=== PATIENT | female | born 1970 | race Caucasian/White ===

== ENCOUNTER 2017-04-17 00:33 | Emergency (ER) | payer SELFPAY ==
[~2017-04-17] VITALS: Ht 162.6 cm; Wt 65.8 kg
[~2017-04-17 00:33] MED LIST: AC325T PO; ACYC200C PO; CEPH500C PO; CYCL10TA9 PO; CYCL5TAB11 PO; DAPS25TA2 PO; DULO60CA6 PO; ESTR1PAT28 TOP; FAMO-119 PO; MMT17NA; NAPR-243 PO; NAPR500T3 PO; NITR100C3 PO; PHEN200T16 PO; PHEN200T27 PO; PRD20T PO; RNT150T; SULF-222 PO; SULF1TAB35 PO; SULF1TAB38 PO; TPR25T; TRM50T PO; [UNRECOGNIZED DRUG - OTHER] PO
[2017-04-17] MEDS ORDERED: MOME15CR17 TP (01:01)
--- NOTE | 2017-04-17 01:01 | ED Integumentary General ---
General Chief Complaint: Bite-Animal/Human/Insect Stated Complaint: BITE ON RT LEG Nursing Triage Note: C/O POSSIBLE SPIDER BITE TO RIGHT GROIN SUNDAY. Source: patient History of Present Illness Time seen by provider: 00:50 Initial Comments PT STATES SHE WAS OUTSIDE WITH HER DOG ON SUNDAY NIGHT, AND FELT SOMETHING BITE/STING HER RIGHT GROIN AREA. DID NOT SEE WHAT BIT/STUNG HER NOTICED A RED BUMP IN AREA AT BEDTIME AREA HAS CONTINUED TO BURN, AND IS HAVING INCREASED REDNESS AROUND THE AREA NO DRAINAGE NO STREAKS NO ITCHING PCP-[facility] Allergies and Home Medications Allergies Coded Allergies: diphenhydramine HCl (Unverified Allergy, Unknown, 11/21/16) Home Medications Mometasone Furoate 15 Gm Cream..g., 0 TP TID, #1 Prescribed by: KIARA CORTEZ on 04/17/17 0101 Constitutional: no symptoms reported EENTM: no symptoms reported Respiratory: no symptoms reported Cardiovascular: no symptoms reported Gastrointestinal: no symptoms reported Genitourinary: no symptoms reported Musculoskeletal: no symptoms reported Skin: see HPI Psychiatric/Neurological: No Symptoms Reported Endocrine: No Symptoms Reported Hematologic/Lymphatic: No Symptoms Reported Past Sezmidq-Kiitrm-Rgksei Hx Patient Social History Alcohol Use: Denies Use Recreational Drug Use: No Smoking Status: Never a Smoker Recent Foreign Travel: No Contact w/Someone Who Travel: No Recent Infectious Disease Expo: No Recent Hopitalizations: No Immunizations Up To Date Tetanus Booster (TDap): Unknown Seasonal Allergies Seasonal Allergies: No Surgeries HX Surgeries: Yes (LAPAROSCOPY; HYST / BSO) Surgeries: Section, Hysterectomy, Oophorectomy Respiratory Hx Respiratory Disorders: Yes Respiratory Disorders: Asthma Cardiovascular Hx Cardiac Disorders: No Neurological Hx Neurological Disorders: No Reproductive System : No Hx Reproductive Disorders: Yes Sexually Transmitted Disease: No Female Reproductive Disorders: Endometriosis 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 Genitourinary Hx Genitourinary Disorders: No Gastrointestinal Hx Gastrointestinal Disorders: Yes (CYSTS ON PANCREAS) Musculoskeletal Hx Musculoskeletal Disorders: Yes Musculoskeletal Disorders: Fibromyalgia Endocrine Hx Endocrine Disorders: Yes Endocrine Disorders: Diabetes, Non-Insulin dep HEENT HX ENT Disorders: No Cancer Hx Cancer: No Psychosocial Hx Psychiatric Problems: No Integumentary HX Skin/Integumentary Disorder: No Blood Transfusions Hx Blood Disorders: No Family Medical History Significant Family History: No Pertinent Family Hx Physical Exam Vital Signs Vital Sign - Last 12Hours 04/17/17 00:52 Temp 97.6 Pulse 75 Resp 16 B/P (MAP) 144/97 Pulse Ox 97 O2 Delivery Room Air Capillary Refill : Less Than 3 Seconds General Appearance: WD/WN, no apparent distress Cardiovascular: regular rate, rhythm Respiratory: normal breath sounds Gastrointestinal: non tender, soft Extremities: other (RIGHT GROIN WITH PINPOINT AREA OF ERYTHEMA WITH MILD SURROUNDING ERYTHEMA OF 1 X 3 CM. NO INDURATION OR WARMTH OR FLUCTUANCE. NO DRAINAGE. NO STREAKS. 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6 97.6 Pulse 75 75 Resp 16 16 B/P (MAP) 144/97 Pulse Ox 97 97 O2 Delivery Room Air Blood Pressure Mean: 113 Departure Impression Impression: Primary Impression: INSECT BITE RIGHT GROIN Additional Impression: Syoshdjaqr-vxpvdofbe-vzfgogq (DPT) vaccination administered at current visit Disposition: 01 HOME, SELF-CARE Condition: Stable Departure-Patient Inst. Referrals: [facility] (PCP/Family) Primary Care Physician Patient Instructions: Diphtheria and Tetanus Toxoids, and Acellular Pertussis Vaccine, Insect Bites and Stings (DC) Add. Discharge Instructions: TYLENOL AND MOTRIN NEEDED FOR PAIN FOLLOW UP WITH YOUR DR IN 2-3 DAYS IF NO BETTER, OR SOONER IF WORSE All discharge instructions reviewed with patient and/or family. Voiced understanding. Scripts Mometasone Furoate (Elocon) 15 Gm Cream..g. 0 TP TID, #1 TUBE Prov: KIARA CORTEZ DO 04/17/17 Images Extremities-Lower 1 - Mild KIARA CORTEZ DO Apr 17, 2017 01:01
[2017-04-17 01:15] VITALS: BP 144/97
[2017-04-17] MEDS ORDERED: TETANUS,DIPTH,PERTUSS P/F (BOOSTRIX) 0.5 ML VIAL IM ONE (01:15)
== END 2017-04-17 01:13 | disposition home or self-care (01) ==
LOC: EDUNIT# 00:33 → ER 00:36
DX: S30.861A Insect bite (nonvenomous) of abdominal wall, initial encounter (principal); J45.909 Unspecified asthma, uncomplicated; E11.9 Type 2 diabetes mellitus without complications; Z90.710 Acquired absence of both cervix and uterus; Z87.19 Personal history of other diseases of the digestive system; Z23 Encounter for immunization; Z87.59 Personal history of other complications of pregnancy, childbirth and the puerperium; W57.XXXA Bitten or stung by nonvenomous insect and other nonvenomous arthropods, initial encounter
CPT/HCPCS: 90471; 90715; 99283

== ENCOUNTER 2018-08-04 10:23 | Emergency (ER) | payer SELFPAY ==
[~2018-08-04] VITALS: Ht 162.6 cm; Wt 52.2 kg
[~2018-08-04 10:23] MED LIST changes: +MOME15CR17 TP; +NAPR-915 PO; -NAPR500T3 PO
--- OUTSIDE RECORDS SUMMARY | 2018-08-04 10:29 | XMS REPORT ---
Author Author JAG OLIVAREZ Organization [facility] Address [address] [place] [address] Care Team Providers Care Light Equipment Operator Name Role Phone JUANIS JAG Unavailable PROBLEMS Type Condition ICD9-CM Code [id number] Code Onset Dates Condition Status SNOMED Code Problem Tinnitus of both ears H93.13 Active 8835176346411 Problem Decreased hearing of both ears H91.93 Active 944785139 Problem Headache R51 Active 51069069 Problem Neck pain M54.2 Active 13518044 ALLERGIES No Information ENCOUNTERS Encounter Location Date Diagnosis [address] [address] Aug, Non-healing skin lesion L98.9 and Impacted cerumen of right ear H61.21 [place] [id number] [place] [address]- [address] Jun, Elevated lipase R74.[address] [address] Jun, Unintentional weight loss R63.4 [place] [id number] [place] [address] 86[address]- [address] Jun, Unintentional weight loss R63.4 ; Fatigue, unspecified type R53.83 and Nausea and vomiting in adult R11.2 [place] [id number] [place] [address] 83209- [address] Dec, Irritant contact dermatitis, unspecified trigger L24.9 [place] [address] [id number] [place] [address]- [address] Nov, [address] [address] Nov, Decreased hearing of both ears H91.93 ; Tinnitus of both ears H93.13 and Cerumen debris on tympanic membrane of left ear H61.22 [facility] [id number] [place] [address]37- 0538 Nov, Neck pain M54.2 ; Headache R51 and Impacted cerumen of left ear H61.22 [facility] [id number] [place] [address]- 7[address] Dec, [facility] [id number] [place] [address] 24594- 9377 Dec, [facility] [id number] [place] [address] 42426- 0761 Nov, [facility] [id number] [place] [address] 53024- 5948 Nov, [facility] [id number] [place] [address] 01930- 9412 Nov, [facility] [id number] [place] [address] 05805- 4473 Nov, [facility] [id number] [place] [address] 95937- 1254 Oct, [facility] [id number] [place] [address] 09587- 8998 Oct, [facility] [id number] [place] [address] 37508- 4225 Oct, [facility] [id number] [place] [address] 673781- 9579 Oct, [facility] [id number] [place] [address] 197274- 4850 Sep, [facility] [id number] [place] [address] 47533- 2577 Sep, [facility] [id number] [place] [address] 80239- 8466 Apr, [facility] [address] [facility] [id number] [place] [address] Apr, [facility] [address] [facility] [id number], [place] [address] Jul, [facility] [address] [facility] [id number], [place] [address] Jul, [facility] [address] [facility] [id number], [place] [address] Nov, IMMUNIZATIONS No Known Immunizations SOCIAL HISTORY Never Assessed REASON FOR VISIT Lab (walk-in) PLAN OF CARE VITAL SIGNS MEDICATIONS No Known Medications RESULTS Name Result Date Reference Range HEMOCCULT (IN HOUSE)-Additional 2017-06-27 RESULTS Negative Control + Lot # [id number] Exp Date 08/2017 HEMOCCULT (IN HOUSE) 2017-06-27 RESULTS Negative Control + Lot # [id number] Exp date 08/2017 PROCEDURES Procedure Date Ordered Result Body Site TEST FOR BLOOD, FECES Jun 27, 2017 INSTRUCTIONS MEDICATIONS ADMINISTERED No Known Medications MEDICAL (GENERAL) HISTORY Type Description Date Medical History fibromyalgia Medical History depression Medical History type II diabetes- dr cedeño in [place] dx'd- she does not ck bs because it causes too much pain. Medical History headache syndrome Medical History asthma Surgical History hysterectomy, total 2007 Surgical History section 1997 Surgical History Dental surgery- wisdom teeth removal 2008 & 2010 Hospitalization History Surgery(s)/Childbirth(s) only
--- OUTSIDE RECORDS SUMMARY | 2018-08-04 10:29 | XMS REPORT ---
Author Author WARREN SINGH Organization [facility] Address [address] [place] [address] Care Team Providers Care Innersole Maker Name Role Phone WARREN SINGH Unavailable PROBLEMS Type Condition ICD9-CM Code ZZK69-DO Code Onset Dates Condition Status SNOMED Code Problem Tinnitus of both ears H93.13 Active 8240155043399 Problem Decreased hearing of both ears H91.93 Active 671583350 Problem Headache R51 Active 49584577 Problem Neck pain M54.2 Active 95880439 ALLERGIES No Information ENCOUNTERS Encounter Location Date Diagnosis [place] [address] [place] [id number] [place] [address] Aug, Non-healing skin lesion L98.9 and Impacted cerumen of right ear H61.21 [place] [address] [place] [id number] [place] [address]- 20[address] Jun, Elevated lipase R74.8 [place] [address] [place] [id number] [place] [address]- 5437 Jun, Unintentional weight loss R63.4 [place] [address] [place] [id number] [place] [address] 79376- [address] Jun, Unintentional weight loss R63.4 ; Fatigue, unspecified type R53.83 and Nausea and vomiting in adult R11.2 [place] [address] [place] [id number] [place] [address] 26380- 2644 Dec, Irritant contact dermatitis, unspecified trigger L24.9 [place] [address] [place] [id number] [place] [address] 54597- 4520 Nov, [place] [address] [place] [id number] [place] [address] 09198- 8314 Nov, Decreased hearing of both ears H91.93 ; Tinnitus of both ears H93.13 and Cerumen debris on tympanic membrane of left ear H61.22 [facility] [address] [place] [id number] [place] [address] 42475- 0078 Nov, Neck pain M54.2 ; Headache R51 and Impacted cerumen of left ear H61.22 [facility] [address] [id number] [place] [address] 31293- 5800 Dec, [facility] [address] [id number] [place] [address] 38021- 4065 Dec, [facility] [address] [place] [id number] [place] [address] 493963- 0642 Nov, [facility] [address] [place] [id number] [place] [address] 42220- 4099 Nov, [facility] [address] [id number] [place] [address] 05450- 7950 Nov, [facility] [id number] [place] [address] 60249- 4983 Nov, [facility] [id number] [place] [address] 34028- 1211 Oct, [facility] [address] [id number] [place] [address] 75604- 2049 Oct, [facility] [address] [id number] [place] [address] [id number]- 9142 Oct, [facility] [address] [id number] [place] [address] 106430- 7116 Oct, [facility] [id number] [place] [address] 782454- 7837 Sep, [facility] [id number] [place] [address] 642730- 0846 Sep, [facility] [id number] [place] [address] 754684- 8354 Apr, [facility] [address] [facility] [id number] [place] [address]- [address] Apr, [facility] [address] [facility] [facility] [id number] [address] Jul, [facility] [address] [facility] [facility] [id number] [place] [address] Jul, [facility] [address] [facility] [address] [facility] [id number] [place] [address] Nov, IMMUNIZATIONS No Known Immunizations SOCIAL HISTORY Never Assessed REASON FOR VISIT US order PLAN OF CARE VITAL SIGNS MEDICATIONS No Known Medications RESULTS No Results PROCEDURES No Known procedures INSTRUCTIONS MEDICATIONS ADMINISTERED No Known Medications MEDICAL [...]
--- OUTSIDE RECORDS SUMMARY | 2018-08-04 10:29 | XMS REPORT ---
Author Author MARLENI HILL [employer] Address Unknown Phone Unavailable Care Team Providers Care Decorating Machine Tender Name Role Phone MARLENI HILL CP Unavailable Allergies, Adverse Reactions, Alerts Substance Reaction Event Type Benadryl hives Drug Allergy Problems Problem Type Condition Code Onset Dates Condition Status Problem Chest pain, unspecified 786.50 Active Problem Routine general medical examination at health care facility V70.0 Active Problem Unspecified otalgia 388.70 Active Problem Tinnitus of both ears H93.13 Active Problem Cerumen debris on tympanic membrane of left ear H61.22 Active Problem Decreased hearing of both ears H91.93 Active Problem Impacted cerumen of left ear H61.22 Active Problem Other abnormal glucose 790.29 Active Problem Neck pain M54.2 Active Problem Headache R51 Active Assessment Irritant contact dermatitis, unspecified trigger L24.9 Active Problem Other malaise and fatigue 780.79 Active Problem Other dyspnea and respiratory abnormalities 786.09 Active Medications Medication Code System Code Instructions Start Date End Date Status Dosage Triamcinolone Acetonide [facility] [address]-73 0.5 % Externally Twice a day December 27, 2015 1 application to affected area Naproxen [facility] [address]-77 500 MG Orally every 12 hrs prn November 11, 2015 1 tablet as needed Procedures Procedure Coding System Code Date Office Visit, Est Pt., Level 3 CPT-4 99860 December 27, 2015 Vital Signs Date/Time: December 27, 2015 Temperature 98.7 F Weight 136.4 lbs Height 64 in BMI 23.41 Index Blood Pressure Diastolic 70 mmHg Blood Pressure Systolic 118 mmHg Cardiac Monitoring Heart Rate 70 bpm Results No Known Results Summary Purpose [employer] Submission
--- OUTSIDE RECORDS SUMMARY | 2018-08-04 10:29 | XMS REPORT ---
Author Author JAG OLIVAREZ [facility] Address [address] [place] [address] Care Team Providers Care Joy Operator Name Role Phone JAG OLIVAREZ Unavailable PROBLEMS Type Condition ICD9-CM Code KLG40-KI Code Onset Dates Condition Status SNOMED Code Problem Tinnitus of both ears H93.13 Active 7253660101858 Problem Decreased hearing of both ears H91.93 Active 856947440 Problem Headache R51 Active 16281411 Problem Neck pain M54.2 Active 69634057 ALLERGIES Substance Reaction Event Type Date Status Benadryl hives Drug Allergy Aug, Active ENCOUNTERS Encounter Location Date Diagnosis [address] [address] Aug, Non-healing skin lesion L98.9 and Impacted cerumen of right ear H61.[address] [address] Jun, Elevated lipase R74.8 [place] [id number] [place] [address] 8[address]- [address] Jun, Unintentional weight loss R63.[address] [address]- [address] Jun, Unintentional weight loss R63.4 ; Fatigue, unspecified type R53.83 and Nausea and vomiting in adult R11.[address] [address]- [address] Dec, Irritant contact dermatitis, unspecified trigger L24.9 [place] [id number] [place] [address] 23516- 3667 Nov, [address] [place] [address]- [address] Nov, Decreased hearing of both ears H91.93 ; Tinnitus of both ears H93.13 and Cerumen debris on tympanic membrane of left ear H61.22 [facility] [id number] [place] [address] 33088- 2265 Nov, Neck pain M54.2 ; Headache R51 and Impacted cerumen of left ear H61.22 [facility] [id number] [place] [address] 68235- 9729 Dec, [facility] [id number] [place] [address] 53939- 8133 Dec, [facility] [id number] [place] [address] 02240- 9739 Nov, [facility] [id number] [place] [address] 34973- 7895 Nov, [facility] [id number] [place] [address] 43450- 7546 Nov, [facility] [id number] [place] [address] 04434- 4650 Nov, [facility] [id number] [place] [address] 45628- 6173 Oct, [facility] [address] [address]- 164[address] Oct, [facility] [id number] [place] [address] [id number]- 8989 Oct, [facility] [id number] [place] [address] 363845- 9450 Oct, [facility] [id number] [place] [address] 110550- 3301 Sep, [facility] [address] Sep, [facility] [address] [facility] [id number] [place] [address]- [address] Apr, [facility] [address] [facility] [id number] [place] [address]- 1087 Apr, [facility] [address] [facility] [id number] [place] [address]- 4416 Jul, [facility] [address] [facility] [id number] [place] [address]- 9409 Jul, [facility] [address] [facility] [id number] [place] [address]- [address] Nov, IMMUNIZATIONS No Known Immunizations SOCIAL HISTORY Never Assessed REASON FOR VISIT Spots on face on right side of forehead, appeared quite a while ago, states it will fall off and regrow, one near her eyebrow just appeared a few weeks ago- [place] PLAN OF CARE Activity Details 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 Reason:lesion VITAL SIGNS Height 64 in 2017-09-05 Weight 113.0 lbs 2017-09-05 Temperature 98.7 degrees Fahrenheit 2017-09-05 Heart Rate 78 bpm 2017-09-05 Respiratory Rate 18 2017-09-05 BMI 19.39 kg/m2 2017-09-05 Blood pressure systolic 104 mmHg 2017-09-05 Blood pressure diastolic 66 mmHg 2017-09-05 MEDICATIONS Medication Instructions Dosage Frequency Start Date End Date Duration Status Triamcinolone Acetonide 0.5 % Externally Twice a day 1 application to affected area 12h Dec, 07 days Not-Taking Naproxen 500 MG Orally every 12 hrs prn 1 tablet as needed Nov, Not-Taking ibuprofen Active RESULTS No Results PROCEDURES No Known procedures [...]
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
[2018-08-04] MEDS ORDERED: NS IV 1000 ML 1,000 ML IV ONE (10:43)
[2018-08-04] MEDS ORDERED: ONDANSETRON 4 MG/2 ML (SDV) Z0FRAN IVP ONE (10:45)
--- NOTE | 2018-08-04 10:58 | ED GI ---
General Chief Complaint: Abdominal/GI Problems Stated Complaint: THROWING UP ALL NIGHT Source of Information: Patient Exam Limitations: No Limitations History of Present Illness Date Seen by Provider: Aug 04, 2018 Time Seen by Provider: 10:56 Initial Comments To ER per private vehicle with reports of abdominal pain nausea and vomiting. The abdominal pain is periumbilical and began yesterday evening. A few hours after the cramping middle abdominal pain began she started to vomit and vomited off and on throughout most of the night. She denies any diarrhea. Currently the cramping abdominal pain is improved but not gone, she does not have any vomiting at this time. No fevers or chills. She suspects this may be "food poisoning" because this began shortly after eating a prepared meal from one of the local [employer]. Timing/Duration: 12-24 Hours Severity/Quality: Moderate, Cramping Location: Periumbilical Associated Symptoms: No Fever/Chills; Nausea/Vomiting Allergies and Home Medications Allergies Coded Allergies: Penicillins (Verified Allergy, Unknown, 08/04/18) diphenhydramine HCl (Unverified Allergy, Unknown, 11/21/16) Home Medications Hyoscyamine Sulfate 0.125 Mg Tab.subl, 0.125 MG SL Q4H PRN for CRAMPS Prescribed by: TED WOMACK on 08/04/18 1320 Ondansetron HCl 4 Mg Tab, 4 MG PO Q6H PRN for NAUSEA/VOMITING Prescribed by: TED WOMACK on 08/04/18 1321 Patient Home Medication List Home Medication List Reviewed: Yes Review of Systems Review of Systems Constitutional: see HPI EENTM: No Symptoms Reported Respiratory: No Symptoms Reported Cardiovascular: No Symptoms Reported Gastrointestinal: See HPI, Abdominal Pain, Nausea, Vomiting Genitourinary: No Symptoms Reported Musculoskeletal: no symptoms reported Skin: no symptoms reported Psychiatric/Neurological: No Symptoms Reported Endocrine: No Symptoms Reported Past Aqzsgbw-Hbbamf-Lzxuhu Hx Patient Social History Recent Foreign Travel: No Contact w/Someone Who Travel: No Recent Hopitalizations: No Immunizations Up To Date Tetanus Booster (TDap): Unknown Seasonal Allergies Seasonal Allergies: No Past Medical History Surgeries: Yes (LAPAROSCOPY) Section, Hysterectomy, Oophorectomy Respiratory: Yes Asthma Cardiac: No Neurological: No Reproductive Disorders: Yes Female Reproductive Disorders: Endometriosis [employer] History: Hysterectomy Sexually Transmitted Disease: No Genitourinary: No Gastrointestinal: Yes (CYSTS ON PANCREAS) Musculoskeletal: Yes Fibromyalgia Endocrine: Yes Diabetes, Non-Insulin dep HEENT: No Cancer: No Psychosocial: No Integumentary: No Blood Disorders: No Family Medical History No Pertinent Family Hx Physical Exam Vital Signs Vital Signs - First Documented 08/04/18 11:02 Temp 99.5 Pulse 75 Resp 18 B/P (MAP) 103/81 (88) Pulse Ox 99 Capillary Refill : Height/Weight/BMI Height: 5'4" Weight: 145lbs. oz. [id number]; 23.17 BMI Method:Stated General Appearance: WD/WN, no apparent distress HEENT: PERRL/EOMI, normal ENT inspection Neck: non-tender, full range of motion Respiratory: no respiratory distress, no accessory muscle use Gastrointestinal: normal bowel sounds, soft, tenderness Extremities: normal range of motion, non-tender Neurologic/Psychiatric: alert, normal mood/affect, oriented x 3 Skin: normal color, warm/dry Progress/Results/Core Measures Results/Orders Lab Results Laboratory Tests Test 08/04/18 10:59 08/04/18 11:07 08/04/18 12:10 Range/Units White Blood Count 7.0 4.3-11.0 10^3/uL Red Blood Count 4.84 4.35-5.85 10^6/uL Hemoglobin 14.4 11.5-16.0 G/DL Hematocrit 43 35-52 % Mean Corpuscular Volume 88 80-99 FL Mean Corpuscular Hemoglobin 30 25-34 PG Mean Corpuscular Hemoglobin Concent 34 32-36 G/DL Red Cell Distribution Width 13.2 10.0-14.5 % Platelet Count 192 130-400 10^3/uL Mean Platelet Volume 10.6 H 7.4-10.4 FL Neutrophils (%) (Auto) 93 H 42-75 % Lymphocytes (%) (Auto) 5 L 12-44 % Monocytes (%) (Auto) 2 0-12 % Eosinophils (%) (Auto) 0 0-10 % Basophils (%) (Auto) 0 0-10 % Neutrophils # (Auto) 6.5 1.8-7.8 X 10^3 Lymphocytes # (Auto) 0.3 L 1.0-4.0 X 10^3 Monocytes # (Auto) 0.2 0.0-1.0 X 10^3 Eosinophils # (Auto) 0.0 0.0-0.3 10^3/uL Basophils # (Auto) 0.0 0.0-0.1 10^3/uL Sodium Level 140 135-145 MMOL/L Potassium Level 3.8 3.6-5.0 MMOL/L Chloride Level 108 H 98-107 MMOL/L Carbon Dioxide Level 19 L 21-32 MMOL/L Anion Gap 13 5-14 MMOL/L Blood Urea Nitrogen 18 7-18 MG/DL Creatinine 0.75 0.60-1.30 MG/DL Estimat Glomerular Filtration Rate > 60 BUN/Creatinine Ratio 24 Glucose Level 104 70-105 MG/DL Calcium Level 9.1 8.5-10.1 MG/DL Corrected Calcium 9.0 8.5-10.1 MG/DL Magnesium Level 2.1 1.8-2.4 MG/DL Total Bilirubin 0.7 0.1-1.0 MG/DL Aspartate Amino Transf (AST/SGOT) 19 5-34 U/L Alanine Aminotransferase (ALT/SGPT) 21 0-55 U/L Alkaline Phosphatase 56 40-136 U/L Total Protein 7.0 6.4-8.2 GM/DL Albumin 4.1 3.2-4.5 GM/DL Lipase 29 8-78 U/L Glucometer 92 70-110 MG/DL Urine Color YELLOW Urine Clarity SLIGHTLY CLOUDY Urine pH 5 5-9 Urine Specific [place] 1.020 1.016-1.022 Urine Protein 1+ H NEGATIVE Urine Glucose (UA) NEGATIVE NEGATIVE Urine Ketones 2+ H NEGATIVE Urine Nitrite NEGATIVE NEGATIVE Urine Bilirubin NEGATIVE NEGATIVE Urine Urobilinogen NORMAL NORMAL MG/DL Urine Leukocyte Esterase NEGATIVE NEGATIVE Urine RBC (Auto) 1+ H NEGATIVE Urine RBC RARE /HPF Urine WBC RARE /HPF Urine Crystals NONE /LPF Urine Bacteria MODERATE H /HPF Urine Casts NONE /LPF Urine Mucus LARGE H /LPF Urine Culture Indicated NO My Orders Orders - TED WOMACK APRN Lactated Ringers (Lr 1000 Ml Iv Solution (08/04/18 12:15) Medications Given in ED Current Medications Medications Dose Ordered Sig/Segun Route Start Time Stop Time Status Last Admin Dose Admin Ondansetron HCl 8 mg ONCE ONCE IVP 08/04/18 10:45 08/04/18 10:46 DC 08/04/18 11:19 8 MG Sodium Chloride 1,000 ml @ 0 mls/hr Q0M ONCE IV 08/04/18 10:43 08/04/18 10:45 DC 08/04/18 11:19 0 MLS/HR Vital Signs/I&O 08/04/18 11:02 Temp 99.5 Pulse 75 Resp 18 B/P (MAP) 103/81 (88) Pulse Ox 99 Departure Impression Primary Impression: Volume depletion Additional Impression: Nausea & vomiting Qualified Codes: R11.2 - Nausea with vomiting, unspecified Disposition: HOME, SELF-CARE Condition: Improved Departure-Patient Inst. Decision time for Depature: 13:19 Referrals: [facility] (PCP/Family) Primary Care Physician Patient Instructions: Nausea and Vomiting, Adult Add. Discharge Instructions: 1. Drink plenty of fluids, Pedialyte is a great choice. Small frequent sips being careful not to drink too much all at once. Use the nausea medication as needed and the medication for abdominal cramping as needed. All discharge instructions reviewed with patient and/or family. Voiced understanding. Scripts Ondansetron HCl (Zofran) 4 Mg Tab 4 MG PO Q6H PRN for NAUSEA/VOMITING, #14 TAB Prov: TED WOMACK APRN 08/04/18 Hyoscyamine Sulfate (Levsin-Sl) 0.125 Mg Tab.subl 0.125 MG SL Q4H PRN for CRAMPS, #10 TAB Prov: TED WOMACK APRN 08/04/18 Work/School Note: Work Release Form Date Seen in the Emergency Department: Aug 04, 2018 Return to Work: Aug 06, 2018 TED WOMACK APRN Aug 04, 2018 10:58
[2018-08-04 11:57] LABS: BASOPHILS % (AUTO) 0 % (0-10); EOSINOPHILS % (AUTO) 0 % (0-10); HEMATOCRIT 43 % (35-52); HEMOGLOBIN 14.4 G/DL (11.5-16.0); LYMPHOCYTES # (AUTO) 0.3 X 10^3 (1.0-4.0); LYMPHOCYTES % (AUTO) 5 % (12-44); MEAN CORPUSCULAR HEMOGLOBIN 30 PG (25-34); MEAN CORPUSCULAR HGB CONC 34 G/DL (32-36); MEAN CORPUSCULAR VOLUME 88 FL (80-99); MEAN PLATELET VOLUME 10.6 FL (7.4-10.4); MONOCYTES # (AUTO) 0.2 X 10^3 (0.0-1.0); MONOCYTES % (AUTO) 2 % (0-12); NEUTROPHILS # (AUTO) 6.5 X 10^3 (1.8-7.8); NEUTROPHILS % (AUTO) 93 % (42-75); PLATELET COUNT 192 10^3/uL (130-400); RED BLOOD COUNT 4.84 10^6/uL (4.35-5.85); RED CELL DISTRIBUTION WIDTH 13.2 % (10.0-14.5)
[2018-08-04 12:00] LABS: ALANINE AMINOTRANSFERASE 21 U/L (0-55); ALBUMIN 4.1 GM/DL (3.2-4.5); ALKALINE PHOSPHATASE 56 U/L (40-136); BILIRUBIN,TOTAL 0.7 MG/DL (0.1-1.0); BUN/CREATININE RATIO 24; CALCIUM 9.1 MG/DL (8.5-10.1); CARBON DIOXIDE 19 MMOL/L (21-32); CHLORIDE 108 MMOL/L (98-107); CREATININE SERUM 0.75 MG/DL (0.60-1.30); GFR ESTIMATED > 60; GLUCOSE 104 MG/DL (70-105); LIPASE 29 U/L (8-78); MAGNESIUM 2.1 MG/DL (1.8-2.4); POTASSIUM 3.8 MMOL/L (3.6-5.0); SODIUM 140 MMOL/L (135-145)
[2018-08-04] MEDS ORDERED: LACTATED RINGERS 1,000 ML IV SCH (12:15)
[2018-08-04 12:52] LABS: BILIRUBIN,URINE NEGATIVE (NEGATIVE); CLARITY,URINE SLIGHTLY CLOUDY; COLOR,URINE YELLOW; GLUCOSE, URINE (UA) NEGATIVE (NEGATIVE); KETONES,URINE 2+ (NEGATIVE); LEUKOCYTE ESTERASE ,URINE NEGATIVE (NEGATIVE); NITRITE,URINE NEGATIVE (NEGATIVE); PH,URINE 5 (5-9); PROTEIN,URINE 1+ (NEGATIVE); UROBILINOGEN,URINE NORMAL (NORMAL)
[2018-08-04 13:07] LABS: BACTERIA,URINE MODERATE /HPF; RBC,URINE RARE /HPF; WBC,URINE RARE /HPF
[2018-08-04] MEDS ORDERED: HYOS0.1283 SL (13:20)
[2018-08-04] MEDS ORDERED: ONDN4T PO (13:21)
[2018-08-04 13:44] VITALS: BP 100/51
[2018-08-04 14:11] LABS: BAND NEUTROPHILS 8 %; LYMPHOCYTES % (MANUAL) 7 %; MONOCYTES % (MANUAL) 2 %; NEUTROPHILS % (MANUAL) 83 %
[2018-08-04 14:12] LABS: TEAR DROP CELLS SLIGHT
== END 2018-08-04 13:43 | disposition home or self-care (01) ==
LOC: EDUNIT# 10:23 → ER 10:24
DX: E86.9 Volume depletion, unspecified (principal); R11.2 Nausea with vomiting, unspecified; J45.909 Unspecified asthma, uncomplicated; E11.9 Type 2 diabetes mellitus without complications; Z87.19 Personal history of other diseases of the digestive system; Z87.448 Personal history of other diseases of urinary system; Z88.0 Allergy status to penicillin; Z88.8 Allergy status to other drugs, medicaments and biological substances; Z90.710 Acquired absence of both cervix and uterus; Z98.890 Other specified postprocedural states
CPT/HCPCS: 36415; 51701; 80053; 81000; 82962; 83690; 83735; 85007; 85027; 96361; 96374

== ENCOUNTER 2019-04-30 12:52 | Emergency (ER) | payer SELFPAY ==
[~2019-04-30] VITALS: Ht 162.6 cm; Wt 52.2 kg
[~2019-04-30 12:52] MED LIST changes: +HYOS0.1283 SL; +ONDN4T PO
--- NOTE | 2019-04-30 13:20 | NUR ---
PT APPEARS TO BE ANXIOUS BUT DENIES ANXIETY AT THIS TIME.
[2019-04-30 13:33] LABS: BASOPHILS % (AUTO) 1 % (0-10); EOSINOPHILS # (AUTO) 0.1 10^3/uL (0.0-0.3); EOSINOPHILS % (AUTO) 2 % (0-10); HEMATOCRIT 42 % (35-52); LYMPHOCYTES # (AUTO) 1.7 X 10^3 (1.0-4.0); LYMPHOCYTES % (AUTO) 29 % (12-44); MEAN CORPUSCULAR HEMOGLOBIN 29 PG (25-34); MEAN CORPUSCULAR HGB CONC 33 G/DL (32-36); MEAN CORPUSCULAR VOLUME 88 FL (80-99); MEAN PLATELET VOLUME 10.3 FL (7.4-10.4); MONOCYTES # (AUTO) 0.4 X 10^3 (0.0-1.0); MONOCYTES % (AUTO) 7 % (0-12); NEUTROPHILS # (AUTO) 3.6 X 10^3 (1.8-7.8); NEUTROPHILS % (AUTO) 61 % (42-75); PLATELET COUNT 177 10^3/uL (130-400); RED CELL DISTRIBUTION WIDTH 13.3 % (10.0-14.5); WHITE BLOOD COUNT 5.9 10^3/uL (4.3-11.0)
[2019-04-30 13:53] LABS: FIBRIN DEGRADATION PRODUCTS 0.2 UG/ML (0.00-0.49); PROTHROMBIN TIME PATIENT 13.5 SEC (12.2-14.7)
[2019-04-30 13:54] LABS: ALANINE AMINOTRANSFERASE 12 U/L (0-55); ALBUMIN 4.2 GM/DL (3.2-4.5); ALKALINE PHOSPHATASE 58 U/L (40-136); BILIRUBIN,TOTAL 0.4 MG/DL (0.1-1.0); BUN/CREATININE RATIO 19; CALCIUM 8.9 MG/DL (8.5-10.1); CARBON DIOXIDE 30 MMOL/L (21-32); CHLORIDE 104 MMOL/L (98-107); CREATININE SERUM 0.77 MG/DL (0.60-1.30); GFR ESTIMATED > 60; GLUCOSE 92 MG/DL (70-105); POTASSIUM 3.8 MMOL/L (3.6-5.0); SODIUM 139 MMOL/L (135-145); TOTAL PROTEIN 7.1 GM/DL (6.4-8.2)
--- NOTE | 2019-04-30 14:15 | Diagnostic Imaging Report ---
INDICATION: Body numbness. TIME OF EXAMINATION: 2:04 PM. COMPARISON: 12/19/2015. FINDINGS: The heart size is normal. The lungs are clear. No infiltrate is seen. No effusion or pneumothorax is detected. IMPRESSION: No acute cardiopulmonary process is detected. Dictated by: Dictated on workstation # [id number]
[2019-04-30 14:16] LABS: BILIRUBIN,URINE NEGATIVE (NEGATIVE); CLARITY,URINE CLEAR; COLOR,URINE YELLOW; GLUCOSE, URINE (UA) NEGATIVE (NEGATIVE); KETONES,URINE NEGATIVE (NEGATIVE); LEUKOCYTE ESTERASE ,URINE NEGATIVE (NEGATIVE); NITRITE,URINE NEGATIVE (NEGATIVE); PH,URINE 6 (5-9); PROTEIN,URINE NEGATIVE (NEGATIVE); UROBILINOGEN,URINE NORMAL (NORMAL)
[2019-04-30 14:26] LABS: BACTERIA,URINE NEGATIVE /HPF
[2019-04-30 14:27] LABS: AMPHETAMINE SCREEN, URINE NEGATIVE (NEGATIVE); BARBITURATE SCREEN URINE NEGATIVE (NEGATIVE); BENZODIAZEPINES SCREEN URINE NEGATIVE (NEGATIVE); CANNABINOID SCREEN, URINE NEGATIVE (NEGATIVE); COCAINE SCREEN URINE NEGATIVE (NEGATIVE); METHADONE STAT NEGATIVE (NEGATIVE); METHAMPHETAMINE SCREEN URINE S NEGATIVE (NEGATIVE); OPIATE SCREEN URINE NEGATIVE (NEGATIVE); OXYCODONE STAT NEGATIVE (NEGATIVE); PROPOXYPHENE STAT NEGATIVE (NEGATIVE); TRICYCLIC ANTIDEPRESSANTS SCRE NEGATIVE (NEGATIVE)
--- NOTE | 2019-04-30 14:28 | Diagnostic Imaging Report ---
PROCEDURE: CT head w/o r/o stroke. TECHNIQUE: Multiple contiguous axial images were obtained through the brain without the use of intravenous contrast. Auto Exposure Controls were utilized during the CT exam to meet ALARA standards for radiation dose reduction. INDICATION: Left-sided facial pain, dizziness, and blurred vision. COMPARISON: No prior examinations are available for comparison. FINDINGS: There is no hemorrhage, hydrocephalus, edema, mass, mass effect, or evidence for elevated intracranial pressures. The basal cisterns are patent. There is no sulcal effacement. No abnormal extra-axial collection. The orbits, sinuses, and calvarium are nonacute. IMPRESSION: No hemorrhage, edema, or acute appearing abnormalities. Dictated by: Dictated on workstation # [id number]
--- NOTE | 2019-04-30 14:32 | ED General ---
General Chief Complaint: Neuro-Stroke Like Symptoms Stated Complaint: LEFT SIDE FACIAL PAIN Nursing Triage Note: was at work when her R arm went numb which then moved to L side of body, states the L side of her face now feels like it is on fire Nursing Sepsis Screen: No Definite Risk Source of Information: Patient History of Present Illness Date Seen by Provider: Apr 30, 2019 Time Seen by Provider: 13:15 Initial Comments PT ARRIVES VIA POV FROM HOME PT STATES "I JUST DON'T FEEL GOOD" STATES SHE HAS BEEN DIZZY--SI BETTER NOW. STATES AT 0900, WHILE AT WORK AT [employer], SHE STARTED HAVING PAIN IN LEFT LEG AND RIGHT ARM, THEN HER WHOLE LEFT SIDE STARTED HURTING, AND THEN SHE GOT DIZZY STATES THE LEFT SIDE OF HER FACE WAS HURTING SO BAD--NOT NOW. ALSO STATES HER LEFT SHOULDER WAS HURTING--NOT NOW STATES THEN HER CHEST STARTED HURTING A LITTLE BIT, AFTER SHE ARRIVED IN THE WAITING ROOM--LASTED A FEW MINUTES AND HAS NOT RETURNED. STATES SHE HAD "CHEST PAINS LAST WEEK FOR 3 OR 4 DAYS" --DID NOT SEEK CARE FOR THAT STATES SHE HAS HAD SOME NAUSEA BECAUSE OF THE PAIN NO PROBLEMS WALKING OR USING HER ARMS OR LEGS NO PROBLEMS TALKING OR SWALLOWING HAS SLIGHT HEADACHE NO VISION CHANGES SLIGHT SHORTNESS OF BREATH WHEN HER CHEST HURT-STATES IT FELT TIGHT NO ACTUAL NUMBNESS OR TINGLING--STATES "IT WAS NUMB BECAUSE IT HURT SO BAD" STATES ALOT OF FAMILY STRESS THE LAST WEEK STATES SHE HAS HAD "DIZZY SPELLS" FOR MANY YEARS, AND HAS BEEN DX WITH V[facility]IGO STATES "SOMETIMES THEY GET SO BAD, I FEEL LIKE I'M GOING TO PASS OUT" PT STATES WORK UP'S IN THE PAST HAVE ALL BEEN NORMAL DOES NOT TAKE ANYTHING FOR DIZZINESS ALSO HAS LONG HISTORY OF ANXIETY, BUT DOES NOT TAKE ANY MEDICATION FOR IT OR SEE A THERAPIST/MENTAL HEALTH PROVIDER, ETC. PCP: MILLIE, NO RECENT VISITS. Allergies and Home Medications Allergies Coded Allergies: Penicillins (Verified Allergy, Unknown, 08/04/18) diphenhydramine HCl (Unverified Allergy, Unknown, 11/21/16) morphine (Verified Allergy, Unknown, 04/30/19) Uncoded Allergies: steroids (Allergy, Mild, 04/30/19) Home Medications Hyoscyamine Sulfate 0.125 Mg Tab.subl, 0.125 MG SL Q4H PRN for CRAMPS Prescribed by: TED WOMACK on 08/04/18 1320 Meloxicam 15 Mg Tablet, 15 MG PO DAILY Prescribed by: KIARA CORTEZ on 04/30/19 1451 Ondansetron HCl 4 Mg Tab, 4 MG PO Q6H PRN for NAUSEA/VOMITING Prescribed by: TED WOMACK on 08/04/18 1321 Patient Home Medication List Home Medication List Reviewed: Yes Review of Systems Review of Systems Constitutional: see HPI; No chills, No diaphoresis; dizziness; No fever, No malaise, No weakness EENTM: no symptoms reported; No blurred vision, No double vision Respiratory: see HPI Cardiovascular: see HPI Gastrointestinal: no symptoms reported; No abdominal pain, No loss of appetite, No nausea Genitourinary: no symptoms reported Musculoskeletal: see HPI Skin: no symptoms reported Psychiatric/Neurological: See HPI, Anxiety, Headache Hematologic/Lymphatic: No Symptoms Reported Immunological/Allergic: no symptoms reported Past Ruztsrf-Yetrmo-Cfodpn Hx Patient Social History Alcohol Use: Occasionally Uses Alcohol Beverage of Choice: Wine Recreational Drug Use: No Smoking Status: Never a Smoker 2nd Hand Smoke Exposure: No Recent Foreign Travel: No Contact w/Someone Who Travel: No Recent Infectious Disease Expo: No Recent Hopitalizations: No Physical Abuse: No Sexual Abuse: No Mistreated: No Fear: No Immunizations Up To Date Tetanus Booster (TDap): Unknown Seasonal Allergies Seasonal Allergies: No Past Medical History Surgeries: Yes (LAPAROSCOPY; HYST/BSO) Section, Hysterectomy, Oophorectomy Respiratory: Yes Asthma Cardiac: No Neurological: Yes Headaches /Migraines, Vertigo Reproductive Disorders: Yes Female Reproductive Disorders: Endometriosis 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 oz. 52.592311hn; 23.17 BMI Method:Stated General Appearance: No Apparent Distress, WD/WN, Anxious HEENT: PERRL/EOMI, TMs Normal, Normal ENT Inspection, Pharynx Normal, Moist Mucous Membranes Neck: Full Range of Motion, Normal Inspection, Non Tender, Supple; No Carotid Bruit, No JVD Respiratory: Chest Non Tender, Normal Breath Sounds, No Accessory Muscle Use, No Respiratory Distress Cardiovascular: Regular Rate, Rhythm, No Edema, No Gallop, No JVD, No Murmur, Normal Peripheral Pulses Gastrointestinal: Normal Bowel Sounds, No Organomegaly, No Pulsatile Mass, Non Tender, Soft Back: Normal Inspection Extremity: Normal Capillary Refill, Normal Inspection, Normal Range of Motion, Non Tender, No Calf Tenderness, No Pedal Edema Neurologic/Psychiatric: Alert, Oriented x3, No Motor/Sensory Deficits, implementation coordinator II- XII Norm as Tested; No Abnormal Cerebellar Tests; Other (ANXIOUS; NIH = 0) Skin: Normal Color, Warm/Dry Progress/Results/Core Measures Suspected Sepsis Recent Fever Within 48 Hours: No Infection Criteria Present: None New/Unexplained Altered Menta: No Sepsis Screen: No Definite Risk SIRS Temperature: Pulse: 73 Respiratory Rate: 18 Laboratory Tests 04/30/19 13:24: White Blood Count 5.9 Blood Pressure 127 /69 Mean: 88 Laboratory Tests 04/30/19 13:24: Creatinine 0.77, INR Comment 1.0, Platelet Count 177, Total Bilirubin 0.4 Results/Orders Lab Results Laboratory Tests Test 04/30/19 13:24 04/30/19 14:10 Range/Units White Blood Count 5.9 4.3-11.0 10^3/uL Red Blood Count 4.82 4.35-5.85 10^6/uL Hemoglobin 14.0 11.5-16.0 G/DL Hematocrit 42 35-52 % Mean Corpuscular Volume 88 80-99 FL Mean Corpuscular Hemoglobin 29 25-34 PG Mean Corpuscular Hemoglobin Concent 33 32-36 G/DL Red Cell Distribution Width 13.3 10.0-14.5 % Platelet Count 177 130-400 10^3/uL Mean Platelet Volume 10.3 7.4-10.4 FL Neutrophils (%) (Auto) 61 42-75 % Lymphocytes (%) (Auto) 29 12-44 % Monocytes (%) (Auto) 7 0-12 % Eosinophils (%) (Auto) 2 0-10 % Basophils (%) (Auto) 1 0-10 % Neutrophils # (Auto) 3.6 1.8-7.8 X 10^3 Lymphocytes # (Auto) 1.7 1.0-4.0 X 10^3 Monocytes # (Auto) 0.4 0.0-1.0 X 10^3 Eosinophils # (Auto) 0.1 0.0-0.3 10^3/uL Basophils # (Auto) 0.0 0.0-0.1 10^3/uL Prothrombin Time 13.5 12.2-14.7 SEC INR Comment 1.0 0.8-1.4 Activated Partial Thromboplast Time 38 H 24-35 SEC D-Dimer 0.20 0.00-0.49 UG/ML Sodium Level 139 135-145 MMOL/L Potassium Level 3.8 3.6-5.0 MMOL/L Chloride Level 104 98-107 MMOL/L Carbon Dioxide Level 30 21-32 MMOL/L Anion Gap 5 5-14 MMOL/L Blood Urea Nitrogen 15 7-18 MG/DL Creatinine 0.77 0.60-1.30 MG/DL Estimat Glomerular Filtration Rate > 60 BUN/Creatinine Ratio 19 Glucose Level 92 70-105 MG/DL Calcium Level 8.9 8.5-10.1 MG/DL Corrected Calcium 8.7 8.5-10.1 MG/DL Total Bilirubin 0.4 0.1-1.0 MG/DL Aspartate Amino Transf (AST/SGOT) 14 5-34 U/L Alanine Aminotransferase (ALT/SGPT) 12 0-55 U/L Alkaline Phosphatase 58 40-136 U/L Troponin I < 0.028 <0.028 NG/ML Total Protein 7.1 6.4-8.2 GM/DL Albumin 4.2 3.2-4.5 GM/DL Serum Alcohol < 10 <10 MG/DL Urine Color YELLOW Urine Clarity CLEAR Urine pH 6 5-9 Urine Specific [place] 1.020 1.016-1.022 Urine Protein NEGATIVE NEGATIVE Urine Glucose (UA) NEGATIVE NEGATIVE Urine Ketones NEGATIVE NEGATIVE Urine Nitrite NEGATIVE NEGATIVE Urine Bilirubin NEGATIVE NEGATIVE Urine Urobilinogen NORMAL NORMAL MG/DL Urine Leukocyte Esterase NEGATIVE NEGATIVE Urine RBC (Auto) NEGATIVE NEGATIVE Urine RBC NONE /HPF Urine WBC NONE /HPF Urine Squamous Epithelial Cells NONE /HPF Urine Crystals NONE /LPF Urine Bacteria NEGATIVE /HPF Urine Casts NONE /LPF Urine Mucus NEGATIVE /LPF Urine Culture Indicated NO Urine Opiates Screen NEGATIVE NEGATIVE Urine Oxycodone Screen NEGATIVE NEGATIVE Urine Methadone Screen NEGATIVE NEGATIVE Urine Propoxyphene Screen NEGATIVE NEGATIVE Urine Barbiturates Screen NEGATIVE NEGATIVE Ur Tricyclic Antidepressants Screen NEGATIVE NEGATIVE Urine Phencyclidine Screen NEGATIVE NEGATIVE Urine Amphetamines Screen NEGATIVE NEGATIVE Urine Methamphetamines Screen NEGATIVE NEGATIVE Urine Benzodiazepines Screen NEGATIVE NEGATIVE Urine Cocaine Screen NEGATIVE NEGATIVE Urine Cannabinoids Screen NEGATIVE NEGATIVE My Orders Orders - DIEGOKIARA Kailey DO Cbc With Automated Diff (04/30/19 13:14) Protime With Inr (04/30/19 13:14) Partial Thromboplastin Time (04/30/19 13:14) Comprehensive Metabolic Panel (04/30/19 13:14) Fibrin Degradation Products (04/30/19 13:14) Troponin I (04/30/19 13:14) Ua Culture If Indicated (04/30/19 13:14) Chest 1 View, Ap/Pa Only (04/30/19 13:14) Ekg Tracing (04/30/19 13:14) Accucheck Stat ONCE (04/30/19 13:14) Ed Iv/Invasive Line Start (04/30/19 13:14) Ed Iv/Invasive Line Start (04/30/19 13:14) Vital Signs Stroke Patient Q15M (04/30/19 13:14) Ct Head Wo-R/O Stroke (04/30/19 13:14) O2 (04/30/19 13:14) Intake & Output 06,14,22 (04/30/19 13:14) Monitor-Rhythm Ecg Trace Only (04/30/19 13:14) Dysphagia Screening Tool (04/30/19 13:14) Alcohol (04/30/19 13:16) Drug Screen Stat (Urine) (04/30/19 13:16) Vital Signs/I&O Capillary Refill : Less Than 3 Seconds Blood Pressure Mean: 88 Progress Note : Progress Note UNEVENTFUL ER STAY SYMPTOMS RESOLVED ON ARRIVAL, AND REMAINED SYMPTOM-FREE FOR REMAINDER OF ER STAY ECG Initial ECG Impression Date: Apr 30, 2019 Initial ECG Impression Time: 13:18 Initial ECG Rate: 59 Initial ECG Rhythm: Normal Sinus Initial ECG Comparisson: No Previous ECG Available Diagnostic Imaging Comments CXR--NO ACUTE PROCESS CT HEAD--NO ACUTE PROCESS PER RADIOLOGIST REPORTS AT 1431 Reviewed: Reviewed by Me Departure Impression Primary Impression: MUSCULOSKELETAL PAIN Additional Impressions: Anxiety CHRONIC INTERMITTENT DIZZINESS Disposition: 01 HOME, SELF-CARE Condition: Improved Departure-Patient Inst. Referrals: [facility] (PCP/Family) Primary Care Physician Patient Instructions: Muscle and Bone Pain (DC), Anxiety, Adult (DC) Add. Discharge Instructions: HOME, REST FOLLOW UP WITH YOUR DR THIS WEEK FOR FURTHER CARE All discharge instructions reviewed with patient and/or family. Voiced understanding. Scripts Meloxicam (Mobic) 15 Mg Tablet 15 MG PO DAILY, #10 TAB Prov: KIARA CORTEZ DO 04/30/19 KIARA CORTEZ DO Apr 30, 2019 14:32
--- NOTE | 2019-04-30 14:42 | NUR ---
DR CORTEZ IN TALKING TO PT AT THIS TIME.
[2019-04-30] MEDS ORDERED: MELO15TA14 PO (14:51)
[2019-04-30 14:57] VITALS: BP 120/75
== END 2019-04-30 14:57 | disposition home or self-care (01) ==
LOC: EDUNIT# 12:52 → ER 12:53
DX: M79.10 Myalgia, unspecified site (principal); J45.909 Unspecified asthma, uncomplicated; G43.909 Migraine, unspecified, not intractable, without status migrainosus; M79.7 Fibromyalgia; E11.9 Type 2 diabetes mellitus without complications; Z88.0 Allergy status to penicillin; Z88.8 Allergy status to other drugs, medicaments and biological substances; Z90.710 Acquired absence of both cervix and uterus
CPT/HCPCS: 36415; 70450; 71045; 80053; 80306; 80320; 81000; 84484; 85025; 85379; 85610; 85730; 93005; 93041

== ENCOUNTER 2021-10-18 12:28 | Emergency (ER) | payer OTHER ==
[~2021-10-18] VITALS: Ht 162 cm; Wt 54.0 kg
[~2021-10-18 12:28] MED LIST changes: +CYCL10TA25 PO; +MELO15TA14 PO; -MOME15CR17 TP; +MOME15CR8 TP; -SULF1TAB35 PO
[2021-10-18 13:14] LABS: BILIRUBIN,URINE NEGATIVE (NEGATIVE); CLARITY,URINE CLEAR; COLOR,URINE YELLOW; GLUCOSE, URINE (UA) NEGATIVE (NEGATIVE); KETONES,URINE NEGATIVE (NEGATIVE); LEUKOCYTE ESTERASE ,URINE NEGATIVE (NEGATIVE); NITRITE,URINE NEGATIVE (NEGATIVE); PROTEIN,URINE NEGATIVE (NEGATIVE)
[2021-10-18 13:15] LABS: BASOPHILS % (AUTO) 1 % (0-10); EOSINOPHILS # (AUTO) 0.1 10^3/uL (0.0-0.3); EOSINOPHILS % (AUTO) 1 % (0-10); HEMATOCRIT 41 % (35-52); HEMOGLOBIN 13.5 g/dL (11.5-16.0); LYMPHOCYTES # (AUTO) 1.8 10^3/uL (1.0-4.0); LYMPHOCYTES % (AUTO) 29 % (12-44); MEAN CORPUSCULAR HEMOGLOBIN 30 pg (25-34); MEAN CORPUSCULAR HGB CONC 33 g/dL (32-36); MEAN CORPUSCULAR VOLUME 90 fL (80-99); MEAN PLATELET VOLUME 10.1 fL (9.0-12.2); MONOCYTES # (AUTO) 0.5 10^3/uL (0.0-1.0); MONOCYTES % (AUTO) 7 % (0-12); NEUTROPHILS # (AUTO) 3.9 10^3/uL (1.8-7.8); NEUTROPHILS % (AUTO) 62 % (42-75); PLATELET COUNT 196 10^3/uL (130-400); WHITE BLOOD COUNT 6.3 10^3/uL (4.3-11.0)
[2021-10-18] MEDS ORDERED: KETOROLAC 30 MG/ML VIAL IVP ONE (13:15)
[2021-10-18] MEDS ORDERED: ONDANSETRON 4 MG/2 ML (SDV) Z0FRAN IVP ONE (13:15)
--- NOTE | 2021-10-18 13:17 | ED Abdominal Pain ---
General Chief Complaint: Abdominal/GI Problems Stated Complaint: STOMACH PAIN/VOMITING Nursing Triage Note: PT CO OF ABD PAIN STARTED ONE WEEK AGO, PT RATES PAIN 10/10, STATES HAS N/V DENIES DIARRHEA. PT WAS SEEN AT [facility] YESTERDAY Source of Information: Patient Exam Limitations: No Limitations History of Present Illness Date Seen by Provider: Oct 18, 2021 Time Seen by Provider: 13:15 Initial Comments To ER with suprapubic abdominal pain that started 1 week ago. Its 10 out of 10. Has a history of fibromyalgia. Occasional loose stools, no dysuria no fevers. She states that she always has chills. She does have nausea no vomiting. Timing/Duration: 1-2 Days Severity/Quality: Moderate Location: Suprapubic Radiation: No Radiation Activities at Onset: None Associated Symptoms: Nausea/Vomiting Allergies and Home Medications Allergies Coded Allergies: Penicillins (Verified Allergy, Unknown, 08/04/18) diphenhydramine HCl (Unverified Allergy, Unknown, 11/21/16) morphine (Verified Allergy, Unknown, 04/30/19) Uncoded Allergies: steroids (Allergy, Mild, 04/30/19) Patient Home Medication List Home Medication List Reviewed: Yes Hyoscyamine Sulfate (Levsin-Sl) 0.125 Mg Tab.subl, 0.125 MG SL Q4H PRN for CRAMPS Prescribed by: TED WOMACK on 08/04/18 1320 Meloxicam (Mobic) 15 Mg Tablet, 15 MG PO DAILY Prescribed by: KIARA CORTEZ on 04/30/19 1451 Ondansetron HCl (Zofran) 4 Mg Tab, 4 MG PO Q6H PRN for NAUSEA/VOMITING Prescribed by: TED WOMACK on 08/04/18 1321 Review of Systems Review of Systems Constitutional: see HPI EENTM: No Symptoms Reported Respiratory: No Symptoms Reported Cardiovascular: No Symptoms Reported Gastrointestinal: See HPI, Abdominal Pain Genitourinary: No Symptoms Reported Musculoskeletal: no symptoms reported Skin: no symptoms reported Psychiatric/Neurological: No Symptoms Reported Endocrine: No Symptoms Reported Hematologic/Lymphatic: No Symptoms Reported Past Jyjbzho-Brgovq-Hbfzpg Hx Immunizations Up To Date Tetanus Booster (TDap): Unknown Seasonal Allergies Seasonal Allergies: No Past Medical History Surgeries: Yes (LAPAROSCOPY; HYST/BSO) Section, Hysterectomy, Oophorectomy Respiratory: Yes Asthma Cardiac: No Neurological: Yes Headaches /Migraines, Vertigo Reproductive Disorders: Yes Female Reproductive Disorders: Endometriosis 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 oz. 52.364632iy; 20.00 BMI Method:Stated General Appearance: WD/WN, no apparent distress HEENT: PERRL/EOMI, normal ENT inspection Respiratory: no respiratory distress, no accessory muscle use Cardiovascular: regular rate, rhythm, no murmur Gastrointestinal: normal bowel sounds, soft, tenderness Extremities: normal range of motion, non-tender Neurologic/Psychiatric: alert, normal mood/affect, oriented x 3 Skin: normal color, warm/dry Progress/Results/Core Measures Results/Orders Lab Results Laboratory Tests Test 10/18/21 13:02 10/18/21 13:12 Range/Units Urine Color YELLOW Urine Clarity CLEAR Urine pH 7.0 5-9 Urine Specific [place] 1.020 1.016-1.022 Urine Protein NEGATIVE NEGATIVE Urine Glucose (UA) NEGATIVE NEGATIVE Urine Ketones NEGATIVE NEGATIVE Urine Nitrite NEGATIVE NEGATIVE Urine Bilirubin NEGATIVE NEGATIVE Urine Urobilinogen 0.2 < = 1.0 MG/DL Urine Leukocyte Esterase NEGATIVE NEGATIVE Urine RBC (Auto) NEGATIVE NEGATIVE Urine RBC NONE /HPF Urine WBC NONE /HPF Urine Squamous Epithelial Cells 0-2 /HPF Urine Crystals PRESENT H /LPF Urine Amorphous Sediment RARE SAMI URATES H /LPF Urine Bacteria TRACE /HPF Urine Casts NONE /LPF Urine Mucus SMALL H /LPF Urine Culture Indicated NO White Blood Count 6.3 4.3-11.0 10^3/uL Red Blood Count 4.51 3.80-5.11 10^6/uL Hemoglobin 13.5 11.5-16.0 g/dL Hematocrit 41 35-52 % Mean Corpuscular Volume 90 80-99 fL Mean Corpuscular Hemoglobin 30 25-34 pg Mean Corpuscular Hemoglobin Concent 33 32-36 g/dL Red Cell Distribution Width 12.7 10.0-14.5 % Platelet Count 196 130-400 10^3/uL Mean Platelet Volume 10.1 9.0-12.2 fL Immature Granulocyte % (Auto) 1 % Neutrophils (%) (Auto) 62 42-75 % Lymphocytes (%) (Auto) 29 12-44 % Monocytes (%) (Auto) 7 0-12 % Eosinophils (%) (Auto) 1 0-10 % Basophils (%) (Auto) 1 0-10 % Neutrophils # (Auto) 3.9 1.8-7.8 10^3/uL Lymphocytes # (Auto) 1.8 1.0-4.0 10^3/uL Monocytes # (Auto) 0.5 0.0-1.0 10^3/uL Eosinophils # (Auto) 0.1 0.0-0.3 10^3/uL Basophils # (Auto) 0.0 0.0-0.1 10^3/uL Immature Granulocyte # (Auto) 0.0 0.0-0.1 10^3/uL Sodium Level 137 135-145 MMOL/L Potassium Level 3.8 3.6-5.0 MMOL/L Chloride Level 104 98-107 MMOL/L Carbon Dioxide Level 24 21-32 MMOL/L Anion Gap 9 5-14 MMOL/L Blood Urea Nitrogen 14 7-18 MG/DL Creatinine 0.71 0.60-1.30 MG/DL Estimat Glomerular Filtration Rate 102 BUN/Creatinine Ratio 20 Glucose Level 95 70-105 MG/DL Calcium Level 8.8 8.5-10.1 MG/DL Corrected Calcium 8.7 8.5-10.1 MG/DL Total Bilirubin 0.5 0.1-1.0 MG/DL Aspartate Amino Transf (AST/SGOT) 17 5-34 U/L Alanine Aminotransferase (ALT/SGPT) 19 0-55 U/L Alkaline Phosphatase 52 40-136 U/L Total Protein 6.8 6.4-8.2 GM/DL Albumin 4.1 3.2-4.5 GM/DL My Orders Orders - TED WOMACK GAS LINE INSTALLER SUPERVISOR Cbc With Automated Diff (10/18/21 13:07) Comprehensive Metabolic Panel (10/18/21 13:07) Ua Culture If Indicated (10/18/21 13:07) Ed Iv/Invasive Line Start (10/18/21 13:07) Ct Abdomen/Pelvis W (10/18/21 13:07) Ketorolac Injection (Toradol Injection) (10/18/21 13:15) Ondansetron Injection (Zofran Injectio (10/18/21 13:15) Iohexol Injection (Omnipaque 350 Mg/Ml 1 (10/18/21 13:30) Received Contrast (Hold Metformin- Contr (10/18/21 13:30) Sodium Chloride Flush (Catheter Flush Sy (10/18/21 13:30) Ns (Ivpb) (Sodium Chloride 0.9% Ivpb Bag (10/18/21 13:30) Medications Given in ED Current Medications Medications Dose Ordered Sig/Segun Route Start Time Stop Time Status Last Admin Dose Admin Iohexol 100 ml ONCE ONCE IV 10/18/21 13:30 10/18/21 13:31 DC 10/18/21 13:42 74 ML Ketorolac Tromethamine 15 mg ONCE ONCE IVP 10/18/21 13:15 10/18/21 13:16 DC 10/18/21 13:25 15 MG Ondansetron HCl 8 mg ONCE ONCE IVP 10/18/21 13:15 10/18/21 13:16 DC 10/18/21 13:24 8 MG Sodium Chloride 10 ml NEEDED PRN IV 10/18/21 13:30 10/18/21 13:42 10 ML Sodium Chloride 100 ml ONCE ONCE IV 10/18/21 13:30 10/18/21 13:31 DC 10/18/21 13:42 80 ML Vital Signs/I&O 10/18/21 12:49 Temp 36.0 Pulse 73 Resp 18 B/P (MAP) 134/74 (94) Pulse Ox 99 Blood Pressure Mean: 94 Departure Communication (Admissions) NAME: [facility] REC#: [id number] PT STATUS: REG ER : 1970 PHYSICIAN: TED WOMACK APRN ADMIT DATE: 10/18/21/ER Draft Date of Exam:10/18/21 CT ABDOMEN/PELVIS W EXAMINATION: CT abdomen and pelvis with intravenous contrast. TECHNIQUE: Multiple contiguous axial images were obtained through the abdomen and pelvis after the uneventful administration of intravenous contrast. All CT scans use one or more of the following dose optimizing techniques: Automated exposure control, MA and/or KvP adjustment based on patient size and exam type or iterative reconstruction. HISTORY: Suprapubic pain. COMPARISON: None available. FINDINGS: Lung bases: There is a 0.6 cm left lower lobe pulmonary nodule (series 2, image 6). Solid organs: The liver is normal without focal lesion. The gallbladder is normal. There is no biliary ductal dilation. Pancreas is normal. Spleen is normal. Adrenal glands are normal. The kidneys are normal without hydronephrosis. Bowel: The stomach and small bowel are normal without obstruction. Scattered colonic diverticulosis. The appendix is nonvisualized and may be surgically absent. No findings of acute appendicitis. Peritoneum: There is no intraperitoneal free fluid or free air. No suspicious lymphadenopathy. Vasculature: Normal without aneurysm. Musculoskeletal: No suspicious osseous lesion or compression fracture. Pelvis: The uterus is surgically absent. No adnexal mass. The urinary bladder is normal. IMPRESSION: 1. No acute abnormality in the abdomen or pelvis. 2. Colonic diverticulosis without findings of diverticulitis. 3. A 0.6 cm left lower lobe pulmonary nodule. Recommend follow-up CT of the chest in 6-12 months. Dictated on workstation # [id number] Dict: 10/18/21 1350 Trans: 10/18/21 1404 [id number] Interpreted by: NANETTE SHI DO Electronically signed by: Impression Primary Impression: Irritable bowel syndrome Disposition: 01 HOME, SELF-CARE Condition: Stable Departure-Patient Inst. Decision time for Depature: 14:07 Referrals: NO,LOCAL PHYSICIAN (PCP/Family) Primary Care Physician Patient Instructions: Irritable Bowel Syndrome Add. Discharge Instructions: 1. Your CT scan does not show any abnormality in the abdomen.There is a very small 6 mm nodule in the left lower lobe of the lung which is an incidental find ing but warrants a repeat CT scan in 6 to 12 months to ensure stability of size. All discharge instructions reviewed with patient and/or family. Voiced understanding. Scripts Dicyclomine HCl (Dicyclomine HCl) 20 Mg Tablet 20 MG PO TID, #21 TAB Prov: TED WOMACK GAS LINE INSTALLER SUPERVISOR 2/8/22 Work/School Note: Work Release Form Date Seen in the Emergency Department: Oct 18, 2021 Return to Work: Oct 19, 2021 TED WOMACK APRN Oct 18, 2021 13:17
[2021-10-18 13:20] LABS: ALBUMIN 4.1 GM/DL (3.2-4.5); POTASSIUM 3.8 MMOL/L (3.6-5.0)
[2021-10-18 13:21] LABS: CALCIUM 8.8 MG/DL (8.5-10.1)
[2021-10-18 13:22] LABS: TOTAL PROTEIN 6.8 GM/DL (6.4-8.2)
[2021-10-18 13:24] LABS: BILIRUBIN,TOTAL 0.5 MG/DL (0.1-1.0)
[2021-10-18 13:26] LABS: CREATININE SERUM 0.71 MG/DL (0.60-1.30)
[2021-10-18] MEDS ORDERED: CATHETER FLUSH 10 ML SYR IV PRN (13:30)
[2021-10-18] MEDS ORDERED: HOLD METFORMIN - RECEIVED CONTRAST 20 ML VIAL IV SCH (13:30)
[2021-10-18] MEDS ORDERED: NS 100 ML (IVPB) BAG IV ONE (13:30)
[2021-10-18] MEDS ORDERED: IOHEXOL 350 MG/ML 100 ML (OMNIPAQUE 350) VIAL IV ONE (13:30)
[2021-10-18 13:31] LABS: BACTERIA,URINE TRACE /HPF; SQUAMOUS EPITHELIAL CELL,UR 0-2 /HPF
[2021-10-18 13:32] LABS: AMORPHOUS SEDIMENT,UR RARE AMOR URATES /LPF
--- NOTE | 2021-10-18 14:04 | Diagnostic Imaging Report ---
EXAMINATION: CT abdomen and pelvis with intravenous contrast. TECHNIQUE: Multiple contiguous axial images were obtained through the abdomen and pelvis after the uneventful administration of intravenous contrast. All CT scans use one or more of the following dose optimizing techniques: Automated exposure control, MA and/or KvP adjustment based on patient size and exam type or iterative reconstruction. HISTORY: Suprapubic pain. COMPARISON: None available. FINDINGS: Lung bases: There is a 0.6 cm left lower lobe pulmonary nodule (series 2, image 6). Solid organs: The liver is normal without focal lesion. The gallbladder is normal. There is no biliary ductal dilation. Pancreas is normal. Spleen is normal. Adrenal glands are normal. The kidneys are normal without hydronephrosis. Bowel: The stomach and small bowel are normal without obstruction. Scattered colonic diverticulosis. The appendix is nonvisualized and may be surgically absent. No findings of acute appendicitis. Peritoneum: There is no intraperitoneal free fluid or free air. No suspicious lymphadenopathy. Vasculature: Normal without aneurysm. Musculoskeletal: No suspicious osseous lesion or compression fracture. Pelvis: The uterus is surgically absent. No adnexal mass. The urinary bladder is normal. IMPRESSION: 1. No acute abnormality in the abdomen or pelvis. 2. Colonic diverticulosis without findings of diverticulitis. 3. A 0.6 cm left lower lobe pulmonary nodule. Recommend follow-up CT of the chest in 6-12 months. Dictated by: Dictated on workstation # [id number]
[2021-10-18] MEDS ORDERED: DICY20TA PO (14:09)
[2021-10-18 14:23] VITALS: BP 128/70
== END 2021-10-18 14:23 | disposition home or self-care (01) ==
LOC: EDUNIT# 12:28 → ER 12:30
DX: K58.9 Irritable bowel syndrome, unspecified (principal); J45.909 Unspecified asthma, uncomplicated; E11.9 Type 2 diabetes mellitus without complications
CPT/HCPCS: 36415; 74177; 80053; 81000; 85025

== ENCOUNTER 2022-02-07 11:02 | Emergency (ER) | payer OTHER ==
[~2022-02-07] VITALS: Ht 36.3 cm; Wt 54.0 kg
[~2022-02-07 11:02] MED LIST changes: +DICY20TA PO
[2022-02-07 11:59] LABS: BASOPHILS % (AUTO) 1 % (0-10); EOSINOPHILS # (AUTO) 0.1 10^3/uL (0.0-0.3); EOSINOPHILS % (AUTO) 1 % (0-10); HEMATOCRIT 44 % (35-52); HEMOGLOBIN 14.6 g/dL (11.5-16.0); LYMPHOCYTES # (AUTO) 1.4 10^3/uL (1.0-4.0); LYMPHOCYTES % (AUTO) 21 % (12-44); MEAN CORPUSCULAR HEMOGLOBIN 31 pg (25-34); MEAN CORPUSCULAR HGB CONC 34 g/dL (32-36); MEAN CORPUSCULAR VOLUME 91 fL (80-99); MEAN PLATELET VOLUME 10.2 fL (9.0-12.2); MONOCYTES # (AUTO) 0.3 10^3/uL (0.0-1.0); MONOCYTES % (AUTO) 5 % (0-12); NEUTROPHILS % (AUTO) 72 % (42-75); PLATELET COUNT 186 10^3/uL (130-400); WHITE BLOOD COUNT 6.9 10^3/uL (4.3-11.0)
--- NOTE | 2022-02-07 11:59 | Diagnostic Imaging Report ---
Indication: Chest pain Single AP view of the chest is obtained with comparison made study of 04/30/2019 FINDINGS: Heart size and pulmonary vascularity are within normal limits, and the lungs are clear, bilaterally. IMPRESSION: Unremarkable chest. Dictated by: Dictated on workstation # [id number]
[2022-02-07 12:06] LABS: ALBUMIN 4.3 GM/DL (3.2-4.5); POTASSIUM 4.9 MMOL/L (3.6-5.0)
[2022-02-07 12:07] LABS: CALCIUM 9.4 MG/DL (8.5-10.1)
[2022-02-07 12:09] LABS: TOTAL PROTEIN 7.7 GM/DL (6.4-8.2)
[2022-02-07 12:10] LABS: BILIRUBIN,TOTAL 0.4 MG/DL (0.1-1.0)
[2022-02-07 12:12] LABS: CREATININE SERUM 0.76 MG/DL (0.60-1.30)
[2022-02-07 12:15] LABS: MAGNESIUM 2.2 MG/DL (1.6-2.4)
[2022-02-07 12:22] LABS: CREATINE KINASE MB 1.8 NG/ML (<6.6)
--- NOTE | 2022-02-07 13:25 | Diagnostic Imaging Report ---
PROCEDURE: CT cervical spine without contrast. TECHNIQUE: Multiple contiguous axial images were obtained through the cervical spine without the use of intravenous contrast. Sagittal and coronal reformations were then performed. Auto Exposure Controls were utilized during the CT exam to meet ALARA standards for radiation dose reduction. INDICATION: Numbness in arms. COMPARISON: CT cervical spine without contrast of 04/20/2016. FINDINGS: Normal alignment. Vertebral body heights are preserved. No fractures. Mild scattered degenerative endplate changes. No evidence of high-grade spinal canal stenosis on soft tissue windows. Visualized paravertebral soft tissues are unremarkable. Lung apices are clear. IMPRESSION: Mild spondylotic changes in the cervical spine. No acute CT findings. Dictated by: Dictated on workstation # [id number]
[2022-02-07 14:17] LABS: PROTHROMBIN TIME PATIENT 13.2 SEC (12.2-14.7)
--- NOTE | 2022-02-07 14:28 | ED Cardiac General ---
History of Present Illness General Chief Complaint: Chest Pain Stated Complaint: CP,L ARM NUMBNESS Nursing Triage Note: Pt reports chest pain starting at 0700 this morning. Pt reports pain to L arm, bilat legs, and L side of face at same time CP started. Pt states pain has improved some but rating pain 7/10 upon arrival to ED. Pt reports intermittent chest pains x1 month but states pain constant today. 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 States that over the past year she has had bilateral arm pain, her fingers would turn red, white, purple, also states that she has been having bilateral leg pain intermittently. Allergies and Home Medications Allergies Coded Allergies: Penicillins (Verified Allergy, Unknown, 08/04/18) diphenhydramine HCl (Unverified Allergy, Unknown, 11/21/16) morphine (Verified Allergy, Unknown, 04/30/19) Uncoded Allergies: steroids (Allergy, Mild, 04/30/19) Patient Home Medication List Dicyclomine HCl (Dicyclomine HCl) 20 Mg Tablet, 20 MG PO TID Prescribed by: TED WOMACK on 10/18/21 1409 Hyoscyamine Sulfate (Levsin-Sl) 0.125 Mg Tab.subl, 0.125 MG SL Q4H PRN for CRAMPS Prescribed by: TED WOMACK on 08/04/18 1320 Meloxicam (Mobic) 15 Mg Tablet, 15 MG PO DAILY Prescribed by: KIARA CORTEZ on 04/30/19 1451 Ondansetron HCl (Zofran) 4 Mg Tab, 4 MG PO Q6H PRN for NAUSEA/VOMITING Prescribed by: TED WOMACK on 08/04/18 1321 Past Axcbtxg-Gjqafu-Ycnong Hx Patient Social History Tobacco Use?: No Substance use?: No Alcohol Use?: No Immunizations Up To Date Tetanus Booster (TDap): Unknown Seasonal Allergies Seasonal Allergies: No Past Medical History Surgery/Hospitalization HX: ASTHMA Surgeries: Yes (LAPAROSCOPY; HYST/BSO) Section, Hysterectomy, Oophorectomy Respiratory: Yes Asthma Cardiac: No Neurological: Yes Headaches /Migraines, Vertigo Reproductive Disorders: Yes Female Reproductive Disorders: Endometriosis [employer] History: Hysterectomy, Menopausal Sexually Transmitted Disease: No Genitourinary: No Gastrointestinal: Yes (CYSTS ON PANCREAS) Musculoskeletal: Yes Fibromyalgia Endocrine: Yes Diabetes, Non-Insulin dep HEENT: No Cancer: No Psychosocial: Yes Anxiety Integumentary: No Blood Disorders: No Family Medical History No Pertinent Family Hx Physical Exam Vital Signs Vital Signs - First Documented 02/07/22 11:40 Pulse 79 Resp 18 B/P (MAP) 121/86 (98) Pulse Ox 98 O2 Delivery Room Air Capillary Refill : Less Than 3 Seconds Height, Weight, BMI Height: 5'4.00" Weight: 115lbs. oz. 52.403178rz; 409.00 BMI Method:Stated Progress/Results/Core Measures Results/Orders Lab Results Laboratory Tests Test 02/07/22 11:49 02/07/22 13:47 Range/Units White Blood Count 6.9 4.3-11.0 10^3/uL Red Blood Count 4.79 3.80-5.11 10^6/uL Hemoglobin 14.6 11.5-16.0 g/dL Hematocrit 44 35-52 % Mean Corpuscular Volume 91 80-99 fL Mean Corpuscular Hemoglobin 31 25-34 pg Mean Corpuscular Hemoglobin Concent 34 32-36 g/dL Red Cell Distribution Width 12.7 10.0-14.5 % Platelet Count 186 130-400 10^3/uL Mean Platelet Volume 10.2 9.0-12.2 fL Immature Granulocyte % (Auto) 0 % Neutrophils (%) (Auto) 72 42-75 % Lymphocytes (%) (Auto) 21 12-44 % Monocytes (%) (Auto) 5 0-12 % Eosinophils (%) (Auto) 1 0-10 % Basophils (%) (Auto) 1 0-10 % Neutrophils # (Auto) 5.0 1.8-7.8 10^3/uL Lymphocytes # (Auto) 1.4 1.0-4.0 10^3/uL Monocytes # (Auto) 0.3 0.0-1.0 10^3/uL Eosinophils # (Auto) 0.1 0.0-0.3 10^3/uL Basophils # (Auto) 0.0 0.0-0.1 10^3/uL Immature Granulocyte # (Auto) 0.0 0.0-0.1 10^3/uL Sodium Level 141 135-145 MMOL/L Potassium Level 4.9 3.6-5.0 MMOL/L Chloride Level 105 98-107 MMOL/L Carbon Dioxide Level 22 21-32 MMOL/L Anion Gap 14 5-14 MMOL/L Blood Urea Nitrogen 11 7-18 MG/DL Creatinine 0.76 0.60-1.30 MG/DL Estimat Glomerular Filtration Rate 94 BUN/Creatinine Ratio 14 Glucose Level 94 70-105 MG/DL Calcium Level 9.4 8.5-10.1 MG/DL Corrected Calcium 9.2 8.5-10.1 MG/DL Magnesium Level 2.2 1.6-2.4 MG/DL Total Bilirubin 0.4 0.1-1.0 MG/DL Aspartate Amino Transf (AST/SGOT) 26 5-34 U/L Alanine Aminotransferase (ALT/SGPT) 26 0-55 U/L Alkaline Phosphatase 64 40-136 U/L Total Creatine Kinase 68 29-168 U/L Creatine Kinase MB 1.8 <6.6 NG/ML Myoglobin 34.7 10.0-92.0 NG/ML Troponin I < 0.028 <0.028 NG/ML Total Protein 7.7 6.4-8.2 GM/DL Albumin 4.3 3.2-4.5 GM/DL Thyroid Stimulating Hormone (TSH) 0.64 0.35-4.94 UIU/ML Prothrombin Time 13.2 12.2-14.7 SEC INR Comment 1.0 0.8-1.4 Activated Partial Thromboplast Time 35 24-35 SEC D-Dimer < 0.27 0.00-0.49 UG/ML My Orders Orders - BEB[employer] NICHOLS [employer] Cbc With Automated Diff (02/07/22 11:41) Magnesium (02/07/22 11:41) Chest 1 View, Ap/Pa Only (02/07/22 11:41) Comprehensive Metabolic Panel (02/07/22 11:41) Myoglobin Serum (02/07/22 11:41) Protime With Inr (02/07/22 11:41) Partial Thromboplastin Time (02/07/22 11:41) O2 (02/07/22 11:41) Monitor-Rhythm Ecg Trace Only (02/07/22 11:41) Ed Iv/Invasive Line Start (02/07/22 11:41) Creatine Kinase (02/07/22 11:41) Creatine Kinase Mb (02/07/22 11:41) Fibrin Degradation Products (02/07/22 11:41) Troponin I Gi (02/07/22 11:41) Thyroid Stimulating Hormone (02/07/22 12:28) Ct Cervical Spine Wo (02/07/22 12:29) Vital Signs/I&O 02/07/22 11:40 Pulse 79 Resp 18 B/P (MAP) 121/86 (98) Pulse Ox 98 O2 Delivery Room Air Blood Pressure Mean: 98 Departure Impression Primary Impression: Raynaud disease Disposition: HOME, SELF-CARE Condition: Improved Departure-Patient Inst. Decision time for Depature: 14:26 Referrals: RIMMA NOBLES MD (PCP/Family) Primary Care Physician Patient Instructions: Raynaud Disease Add. Discharge Instructions: Plan: 1. Call your primary care provider and schedule follow-up. I would recommend testing for autoimmune disorder as this could represent some form of vasculitis. 2. The red, white, blue coloring of your fingertips is likely related to Raynaud syndrome. You have been provided information regarding this. 3. Return to ER for any new, concerning, or worsening symptoms. All discharge instructions reviewed with patient and/or family. Voiced underst anding. Work/School Note: Work Release Form Date Seen in the Emergency Department: Rosalind coyle 2021 Return to Work: Feb 09, 2022 Restrictions: No Restrictions [employer] February 07, 2022 14:28
[2022-02-07 14:33] VITALS: BP 132/87
== END 2022-02-07 14:33 | disposition home or self-care (01) ==
LOC: EDUNIT# 11:02 → ER 11:03
DX: I73.00 Raynaud's syndrome without gangrene (principal)
CPT/HCPCS: 36415; 71045; 72125; 80053; 82550; 82553; 83735; 83874; 84443; 84484; 85025; 85379; 85610; 85730; 93005

== ENCOUNTER 2022-06-24 09:54 | Emergency (ER) | payer OTHER ==
[~2022-06-24] VITALS: Ht 162 cm; Wt 56.0 kg
[2022-06-24 10:35] LABS: BASOPHILS # (AUTO) 0.1 10^3/uL (0.0-0.1); BASOPHILS % (AUTO) 1 % (0-10); EOSINOPHILS # (AUTO) 0.1 10^3/uL (0.0-0.3); EOSINOPHILS % (AUTO) 1 % (0-10); HEMATOCRIT 41 % (35-52); HEMOGLOBIN 13.7 g/dL (11.5-16.0); LYMPHOCYTES # (AUTO) 1.7 10^3/uL (1.0-4.0); LYMPHOCYTES % (AUTO) 26 % (12-44); MEAN CORPUSCULAR HEMOGLOBIN 30 pg (25-34); MEAN CORPUSCULAR HGB CONC 34 g/dL (32-36); MEAN CORPUSCULAR VOLUME 90 fL (80-99); MEAN PLATELET VOLUME 10.3 fL (9.0-12.2); MONOCYTES # (AUTO) 0.4 10^3/uL (0.0-1.0); MONOCYTES % (AUTO) 7 % (0-12); NEUTROPHILS # (AUTO) 4.3 10^3/uL (1.8-7.8); NEUTROPHILS % (AUTO) 66 % (42-75); PLATELET COUNT 190 10^3/uL (130-400); WHITE BLOOD COUNT 6.5 10^3/uL (4.3-11.0)
[2022-06-24 10:50] LABS: PROTHROMBIN TIME PATIENT 13.9 SEC (12.2-14.7)
--- NOTE | 2022-06-24 10:52 | Diagnostic Imaging Report ---
EXAM: CHEST 1 VIEW, AP/PA ONLY. INDICATION: Chest pain. COMPARISON: 02/07/2022. FINDINGS: Normal heart size and central pulmonary vascularity. Lungs are clear. No pleural effusion or pneumothorax. No acute osseous findings. IMPRESSION: No acute cardiopulmonary findings. Dictated by: Dictated on workstation # [id number]
[2022-06-24 10:59] LABS: ALBUMIN 4.1 GM/DL (3.2-4.5); BILIRUBIN,TOTAL 0.3 MG/DL (0.1-1.0); CALCIUM 8.9 MG/DL (8.5-10.1); CREATININE SERUM 0.75 MG/DL (0.60-1.30); POTASSIUM 3.9 MMOL/L (3.6-5.0); TOTAL PROTEIN 6.8 GM/DL (6.4-8.2)
--- NOTE | 2022-06-24 11:23 | ED Cardiac General ---
History of Present Illness General Chief Complaint: Chest Pain Stated Complaint: HEADACHE/NECK/LEFT ARM PAIN DIZZY/LIGHTHEADED Nursing Triage Note: PT AMB TO RM 6 PT CO OF CHEST PAIN LAST PM. PT CURRENTLY HAS GARRETT RATES 10/10 HAS NECK PAIN WHEN BENDS HEAD 910. HAS HX GARRETT.DIZZINESS,HAS HX VERTIGO. L ARM PAIN /10 DENIES CP AT THIS X. PT LEFT WORK THIS AM D/T GARRETT. BROUGHT TO ED BY DAUGHTER Source: patient Exam Limitations: no limitations (JARETH RODRIGUEZ) History of Present Illness Date Seen by Provider: Jun 24, 2022 Time Seen by Provider: 10:15 Initial Comments This 51 y/o female presents with reported head ache, neck pain, left arm pain, chest pain, and dizziness. Patient states her head ache began yesterday. She states it started in the right posterior side of her neck and wraps around the right posterior side of her head to her forehead. Patient states her head ache pain rates as 10/10. Patient states she took tylenol and excedrin yesterday and tylenol this morning with no relief. Patient reports a history of migraines but states her head aches have been getting more frequent and severe. Patient reports a history of cervical degenerative disc disease; denies any recent trauma to head or neck. Patient states her neck pain is 10/10 and is exacerbated with movement. Patient states onset of chest pain was yesterday evening. Patient reports the pain was crushing and heavy. Patient states CP had resolved but experienced a sharp stabbing right-sided chest pain while here in the ED. Patient denies current chest pain. Patient reports left arm pain began this morning. Patient states she chronically has extremity pain. Patient denies cardiac history or prior work-up. Patient reports a history of chronic dizziness. Patient states the dizziness feels like she is going to pass out while the room is spinning. Last episode of dizziness was yesterday afternoon. Patient denies feeling currently dizzy. Patient denies fever, cough, congestion, abdominal pain, nausea, vomiting, diarrhea, or shortness of breath. 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: No Associated Systoms: No Chest Pain (no current chest pain), No Cough, No Fever/Chills; Headaches; No Nausea/Vomiting, No Rash, No Shortness of Air, No Syncope (JARETH RODRIGUEZ) Allergies and Home Medications Allergies Coded Allergies: Penicillins (Verified Allergy, Unknown, 08/04/18) diphenhydramine HCl (Unverified Allergy, Unknown, 11/21/16) morphine (Verified Allergy, Unknown, 04/30/19) Uncoded Allergies: steroids (Allergy, Mild, 04/30/19) Patient Home Medication List Home Medication List Reviewed: Yes (JARETH RODRIGUEZ) Cyclobenzaprine HCl (Cyclobenzaprine HCl) 10 Mg Tablet, 10 MG PO Q8H PRN for SPASMS Prescribed by: NEETU CALDERÓN on 06/24/22 1616 Dicyclomine HCl (Dicyclomine HCl) 20 Mg Tablet, 20 MG PO TID Prescribed by: TED WOMACK on 10/18/21 1409 Hyoscyamine Sulfate (Levsin-Sl) 0.125 Mg Tab.subl, 0.125 MG SL Q4H PRN for CRAMPS Prescribed by: TED WOMACK on 08/04/18 1320 Meloxicam (Mobic) 15 Mg Tablet, 15 MG PO DAILY Prescribed by: KIARA CORTEZ on 04/30/19 1451 Ondansetron HCl (Zofran) 4 Mg Tab, 4 MG PO Q6H PRN for NAUSEA/VOMITING Prescribed by: TED WOMACK on 08/04/18 1321 Review of Systems Review of Systems Constitutional: dizziness EENTM: Blurred Vision (of left eye), Eye Tearing (bilateral) Respiratory: No Symptoms Reported Cardiovascular: Denies Chest Pain; Lightheadedness; Denies Syncope Gastrointestinal: No Symptoms Reported Genitourinary: No Symptoms Reported Musculoskeletal: neck pain Skin: no symptoms reported; No lesions, No pruritus, No rash Psychiatric/Neurological: Headache; Denies Numbness, Denies Paresthesia Endocrine: Intolerance to Cold (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) Hematologic/Lymphatic: No Symptoms Reported (JARETH RODRIGUEZ) All Other Systems Reviewed Negative Unless Noted: Yes (JARETH RODRIGUEZ) Past Zkyhtun-Fhzymd-Eldupj Hx Patient Social History Tobacco Use?: No Substance use?: No Alcohol Use?: No Pt feels they are or have been: No (JARETH RODRIGUEZ) Immunizations Up To Date Tetanus Booster (TDap): Unknown (JARETH RODRIGUEZ) Seasonal Allergies Seasonal Allergies: No (JARETH RODRIGUEZ) Past Medical History Surgery/Hospitalization HX: ASTHMA, HYST, VERTIGO C-SECTIONS, GARRETT Surgeries: Yes (LAPAROSCOPY; HYST/BSO) Section, Hysterectomy, Oophorectomy Respiratory: Yes Asthma Cardiac: No Neurological: Yes Headaches /Migraines, Vertigo Reproductive Disorders: Yes Female Reproductive Disorders: Endometriosis GENERAL PRACTICE History: Hysterectomy, Menopausal Sexually Transmitted Disease: No Genitourinary: No Gastrointestinal: Yes (CYSTS ON PANCREAS) Musculoskeletal: Yes Fibromyalgia Endocrine: Yes Diabetes, Non-Insulin dep HEENT: No Cancer: No Psychosocial: Yes Anxiety Integumentary: No Blood Disorders: No (JARETH RODRIGUEZ) Family Medical History No Pertinent Family Hx (JARETH RODRIGUEZ) Physical Exam Vital Signs Vital Signs - First Documented 06/24/22 10:21 Temp 35.2 Pulse 64 Resp 18 B/P (MAP) 149/88 (108) Pulse Ox 99 (NEETU MORRIS MD) Vital Signs Capillary Refill : Less Than 3 Seconds (JARETH RODRIGUEZ) Height, Weight, BMI Height: 5'4.00" Weight: 115lbs. oz. 52.133962ff; 21.00 BMI Method:Stated General Appearance: Anxious HEENT: PERRL/EOMI, TMs Normal, Normal ENT Inspection, Pharynx Normal, Other (forehead tenderness bilaterally with palpation) Neck: Limited Range of Motion; No Lymphadenopathy (L), No Lymphadenopathy (R); Tender Lateral, Tender Midline Respiratory: Lungs Clear, Normal Breath Sounds, No Accessory Muscle Use, No Respiratory Distress Cardiovascular: Regular Rate, Rhythm, No Edema, No Murmur Gastrointestinal: Normal Bowel Sounds, Non Tender, Soft Extremity: Other (upper extremity exam detailed below) Neurologic/Psychiatric: Alert, Oriented x3 Skin: Normal Color, Warm/Dry, Other (no rash appreciated on patient's scalp, neck, arms, or chest) Lymphatic: No Adenopathy Other comments Upper extremity exam: Sensation intact bilaterally ROM decreased in abduction bilaterally due to neck pain Muscle strength 4/5 bilaterally Tenderness of left shoulder and upper arm with palpation (JARETH RODRIGUEZ) Progress/Results/Core Measures Results/Orders Lab Results Laboratory Tests Test 06/24/22 10:20 Range/Units White Blood Count 6.5 4.3-11.0 10^3/uL Red Blood Count 4.55 3.80-5.11 10^6/uL Hemoglobin 13.7 11.5-16.0 g/dL Hematocrit 41 35-52 % Mean Corpuscular Volume 90 80-99 fL Mean Corpuscular Hemoglobin 30 25-34 pg Mean Corpuscular Hemoglobin Concent 34 32-36 g/dL Red Cell Distribution Width 12.6 10.0-14.5 % Platelet Count 190 130-400 10^3/uL Mean Platelet Volume 10.3 9.0-12.2 fL Immature Granulocyte % (Auto) 0 % Neutrophils (%) (Auto) 66 42-75 % Lymphocytes (%) (Auto) 26 12-44 % Monocytes (%) (Auto) 7 0-12 % Eosinophils (%) (Auto) 1 0-10 % Basophils (%) (Auto) 1 0-10 % Neutrophils # (Auto) 4.3 1.8-7.8 10^3/uL Lymphocytes # (Auto) 1.7 1.0-4.0 10^3/uL Monocytes # (Auto) 0.4 0.0-1.0 10^3/uL Eosinophils # (Auto) 0.1 0.0-0.3 10^3/uL Basophils # (Auto) 0.1 0.0-0.1 10^3/uL Immature Granulocyte # (Auto) 0.0 0.0-0.1 10^3/uL Prothrombin Time 13.9 12.2-14.7 SEC INR Comment 1.0 0.8-1.4 Activated Partial Thromboplast Time 38 H 24-35 SEC Sodium Level 142 135-145 MMOL/L Potassium Level 3.9 3.6-5.0 MMOL/L Chloride Level 108 H 98-107 MMOL/L Carbon Dioxide Level 21 21-32 MMOL/L Anion Gap 13 5-14 MMOL/L Blood Urea Nitrogen 12 7-18 MG/DL Creatinine 0.75 0.60-1.30 MG/DL Estimat Glomerular Filtration Rate 96 BUN/Creatinine Ratio 16 Glucose Level 89 70-105 MG/DL Calcium Level 8.9 8.5-10.1 MG/DL Corrected Calcium 8.8 8.5-10.1 MG/DL Magnesium Level 2.0 1.6-2.4 MG/DL Total Bilirubin 0.3 0.1-1.0 MG/DL Aspartate Amino Transf (AST/SGOT) 12 5-34 U/L Alanine Aminotransferase (ALT/SGPT) 14 0-55 U/L Alkaline Phosphatase 56 40-136 U/L Myoglobin 36.1 10.0-92.0 NG/ML Troponin I < 0.028 <0.028 NG/ML Total Protein 6.8 6.4-8.2 GM/DL Albumin 4.1 3.2-4.5 GM/DL (NEETU MORRIS MD) My Orders Orders - NEETU MORRIS MD Cbc With Automated Diff (06/24/22 10:25) Magnesium (06/24/22 10:25) Chest 1 View, Ap/Pa Only (06/24/22 10:25) Ekg Tracing (06/24/22 10:25) Comprehensive Metabolic Panel (06/24/22 10:25) Myoglobin Serum (06/24/22 10:25) Protime With Inr (06/24/22 10:25) Partial Thromboplastin Time (06/24/22 10:25) O2 (06/24/22 10:25) Monitor-Rhythm Ecg Trace Only (06/24/22 10:25) Ed Iv/Invasive Line Start (06/24/22 10:25) Troponin I [place] (06/24/22 10:25) Lactated Ringers (Lr 1000 Ml Iv Solution (06/24/22 12:15) Orphenadrine Inj (Ed Only) (Norflex Inje (06/24/22 12:15) Ketorolac Injection (Toradol Injection) (06/24/22 12:15) (NEETU MORRIS MD) Medications Given in ED Current Medications Medications Dose Ordered Sig/Segun Route Start Time Stop Time Status Last Admin Dose Admin Ketorolac Tromethamine 30 mg ONCE ONCE IVP 06/24/22 12:15 06/24/22 12:16 DC 06/24/22 12:26 30 MG Lactated Ringer's 1,000 ml @ 0 mls/hr Q0M ONCE IV 06/24/22 12:15 06/24/22 12:16 DC 06/24/22 12:26 0 MLS/HR Orphenadrine Citrate 30 mg ONCE ONCE IM 06/24/22 12:15 06/24/22 12:16 DC 06/24/22 12:30 30 MG (NEETU MORRIS MD) Vital Signs/I&O 06/24/22 06/24/22 10:21 16:25 Temp 35.2 Pulse 64 70 Resp 18 16 B/P (MAP) 149/88 (108) 122/77 Pulse Ox 99 99 (NEETU MORRIS MD) Blood Pressure Mean: 108 Progress Progress Note : Progress Note Work-up was relatively unremarkable. Patient was found to have significant tenderness in the right paraspinous musculature of the neck and shoulder region. She was treated with Norflex and Toradol as well as a liter of IV fluid. She had significant improvement with these measures. Further work-up is being deferred to outpatient care. See discharge instructions for further discussion. (NEETU MORRIS MD) Initial ECG Impression Date: Jun 24, 2022 Initial ECG Impression Time: 10:39 Initial ECG Rate: 56 Initial ECG Rhythm: Normal Sinus Comment Sinus rhythm with no ST elevation or depression. No abnormal intervals or axis deviation. Borderline bradycardia. (NEETU MORRIS MD) Diagnostic Imaging Diagonstic Imaging: Xray Plain Films/CT/US/NM/MRI: chest Comments NAME: [facility] REC#: [id number] PT STATUS: REG ER : 1970 PHYSICIAN: NEETU MORRIS MD ADMIT DATE: 06/24/22/ER Signed Date of Exam:06/24/22 CHEST 1 VIEW, AP/PA ONLY EXAM: CHEST 1 VIEW, AP/PA ONLY. INDICATION: Chest pain. COMPARISON: 02/07/2022. FINDINGS: Normal heart size and central pulmonary vascularity. Lungs are clear. No pleural effusion or pneumothorax. No acute osseous findings. IMPRESSION: No acute cardiopulmonary findings. Dictated by: Dictated on workstation # [id number] Dict: 06/24/22 1042 Trans: 06/24/22 1107 [id number] Interpreted by: LUCRECIA WALKER MD Electronically signed by: LUCRECIA WALKER MD 06/24/221106 (NEETU MORRIS MD) Departure Impression Primary Impression: Tension headache Additional Impression: Atypical chest pain Disposition: 01 HOME, SELF-CARE Condition: Improved Departure-Patient Inst. Decision time for Depature: 16:14 (NEETU MORRIS MD) Referrals: RIMMA NOBLES MD (PCP/Family) Primary Care Physician Patient Instructions: Chest Pain, Tension Headache Add. Discharge Instructions: Follow-up with your primary care provider soon as possible. Please call Sunday morning to arrange follow-up. In the meantime, you may take naproxen 500 mg every 12 hours and/or Tylenol (acetaminophen) up to 1000 mg every 6 hours as needed for pain control. Gentle heat on your tense neck muscles may also help alleviate tension and he adache. Gentle stretching likewise may be helpful. You may use cyclobenzaprine as prescribed for muscle tension and spasms in your neck and shoulder. This medication may cause some drowsiness, so use with caution. Do not drive, use machinery, or make important decisions while on cyclobenzaprine. Return to care if you have worsening symptoms despite following these instructions. All discharge instructions reviewed with patient and/or family. Voiced understanding. Scripts Cyclobenzaprine HCl (Cyclobenzaprine HCl) 10 Mg Tablet 10 MG PO Q8H PRN for SPASMS, #15 TAB 0 Refills Prov: NEETU MORRIS MD 06/24/22 Medical Student Attestation and Attending Note: I have personally interviewed and examined this patient along with Kayla Rodriguez, MS 4. I have reviewed student documentation including history, physical, and assessments. I agree with the documentation except where otherwise noted. Exam: General: Alert, oriented, mild acute distress, well developed, thin Neck: tenderness in the right cervical paraspinous muscles extending into the trapezius and shoulder muscles. HEENT: Normocephalic and atraumatic Heart: Regular rate and rhythm without murmur Lungs: Clear to auscultation bilaterally with normal effort Abdomen: Soft, nontender, nondistended, normal bowel sounds Neuropsych: Alert, oriented, no focal deficits Skin: Warm and dry without rashes (NEETU MORRIS MD) Copy Copies To 1: SELF,JARETH LINK MD Jun 24, 2022 11:23 NEETU MORRIS MD Jun 24, 2022 16:16
[2022-06-24] MEDS ORDERED: KETOROLAC 30 MG/ML VIAL IVP ONE (12:15)
[2022-06-24] MEDS ORDERED: ORPHENADRINE 60 MG/2 ML (NORFLEX) AMP (ED ONLY) IM ONE (12:15)
[2022-06-24] MEDS ORDERED: LACTATED RINGERS 1,000 ML IV ONE (12:15)
[2022-06-24] MEDS ORDERED: CYCL10TA25 PO (16:16)
[2022-06-24 16:25] VITALS: BP 122/77
== END 2022-06-24 16:25 | disposition home or self-care (01) ==
LOC: EDUNIT# 09:54 → ER 09:56
DX: G44.209 Tension-type headache, unspecified, not intractable (principal); R07.89 Other chest pain; Z86.69 Personal history of other diseases of the nervous system and sense organs; Z28.310 Unvaccinated for COVID-19
CPT/HCPCS: 36415; 71045; 80053; 83735; 83874; 84484; 85025; 85610; 85730; 93005; 93041

== ENCOUNTER 2022-09-01 10:33 | Emergency (ER) | payer OTHER ==
[~2022-09-01] VITALS: Ht 162.5 cm; Wt 56.0 kg
--- NOTE | 2022-09-01 10:52 | ED Trauma-Vehiclar ---
General Chief Complaint: Trauma-Non Activation Stated Complaint: HEAD INJ | FALL ON 08/30 Time Seen by MD: 10:38 Source: patient Exam Limitations: no limitations History of Present Illness Date Seen by Provider: Sep 01, 2022 Time Seen by Provider: 10:51 Initial Comments To ER with head injury. She fell on 08/30/2022 after walking back from the bathroom. Believes she slipped but she is not sure why. She states that she hit her head and everything went black. She has ongoing headache. She has left arm pain, diffuse back pain. No nausea no vomiting. No confusion. She is not on blood thinners. Occurred: other (2 days ago) Severity: moderate Injury/Pain Location: head Loss of Consciousness: no loss of consciousness Associated Symptoms (Fall): Headache Allergies and Home Medications Allergies Coded Allergies: Penicillins (Verified Allergy, Unknown, 09/01/22) diphenhydramine HCl (Unverified Allergy, Unknown, Hives, 09/01/22) hydrocodone (Verified Allergy, Unknown, 09/01/22) morphine (Verified Allergy, Unknown, 09/01/22) oxycodone (Verified Allergy, Unknown, 09/01/22) Uncoded Allergies: steroids (Allergy, Mild, 04/30/19) Patient Home Medication List Home Medication List Reviewed: Yes Cyclobenzaprine HCl (Cyclobenzaprine HCl) 10 Mg Tablet, 10 MG PO Q8H PRN for SPASMS Prescribed by: NEETU CALDERÓN on 06/24/22 1616 Dicyclomine HCl (Dicyclomine HCl) 20 Mg Tablet, 20 MG PO TID Prescribed by: TED WOMACK on 10/18/21 1409 Hyoscyamine Sulfate (Levsin-Sl) 0.125 Mg Tab.subl, 0.125 MG SL Q4H PRN for CRAMPS Prescribed by: TED WOMACK on 08/04/18 1320 Meloxicam (Mobic) 15 Mg Tablet, 15 MG PO DAILY Prescribed by: KIARA CORTEZ on 04/30/19 1451 Ondansetron HCl (Zofran) 4 Mg Tab, 4 MG PO Q6H PRN for NAUSEA/VOMITING Prescribed by: TED WOMACK on 08/04/18 1321 Review of Systems Review of Systems Constitutional: see HPI Eyes: No Symptoms Reported Ears: No Symptoms Reported Nose: No Symptoms Reported Mouth: No Symptoms Reported Throat: No Symptoms to Report Respiratory: no symptoms reported Cardiovascular: No Symptoms Reported Genitourinary: no symptoms reported Musculoskeletal: see HPI Skin: no symptoms reported Psychiatric/Neurological: No Symptoms Reported Past Piqfpix-Zluwtw-Euhlww Hx Patient Social History Tobacco Use?: No Use of E-Cig and/or Vaping dev: No Substance use?: No Alcohol Use?: Yes Alcohol type: Wine Alcohol Frequency: Once in a while Pt feels they are or have been: No Immunizations Up To Date Tetanus Booster (TDap): Unknown Influenza Vaccine Up-to-Date: No; Not Current Seasonal Allergies Seasonal Allergies: No Past Medical History Surgery/Hospitalization HX: ASTHMA, HYST, VERTIGO C-SECTIONS, GARRETT Surgeries: Yes (LAPAROSCOPY; HYST/BSO) Section, Hysterectomy, Oophorectomy Respiratory: Yes Asthma Cardiac: No Neurological: Yes Headaches /Migraines, Vertigo Reproductive Disorders: Yes Female Reproductive Disorders: Endometriosis 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 oz. 52.585226hf; 21.00 BMI Method:Stated General Appearance: WD/WN, no apparent distress HEENT: PERRL/EOMI, normal ENT inspection Neck: non-tender, full range of motion Respiratory: normal breath sounds, no respiratory distress, no accessory muscle use Gastrointestinal: normal bowel sounds, non tender, soft Extremities: normal range of motion, non-tender Neurologic/Psychiatric: alert, normal mood/affect, oriented x 3 Skin: normal color, warm/dry Juan Coma Score Best Eye Response: (4) Open Spontaneously Best Verbal Response: (5) Oriented Best Motor Response: (6) Obeys Commands Juan Total: 15 Progress/Results/Core Measures Results/Orders My Orders Orders - TED WOMACK APRN Ct Head/Cervical Spine Wo (09/01/22 10:50) T-Spine 3v-Ap, Lat, Swimmers (12/23/22 10:50) Shoulder, Left, 3 Views (09/01/22 10:50) Vital Signs/I&O 09/01/22 09/01/22 10:40 10:40 Temp 36.6 36.6 Pulse 68 68 Resp 18 18 B/P (MAP) 145/68 (93) 145/68 (93) Pulse Ox 98 98 O2 Delivery Room Air Room Air Departure Impression Primary Impression: Fall at home Additional Impression: Concussion Disposition: 01 HOME, SELF-CARE Condition: Stable Departure-Patient Inst. Decision time for Depature: 11:02 Referrals: RIMMA NOBLES MD (PCP/Family) Primary Care Physician Patient Instructions: Minor Head Injury, Adult ED Add. Discharge Instructions: 1. Return to ER for any concerns 2. Follow-up with your doctor next week 3. Warm compresses to the muscle painful muscles. Take Tylenol for pain. All discharge instructions reviewed with patient and/or family. Voiced understanding. TED WOMACK TIRE RECAPPING MACHINE OPERATOR Sep 01, 2022 10:52
--- NOTE | 2022-09-01 11:31 | Diagnostic Imaging Report ---
CLINICAL INDICATION: Patient fell hitting left side of head. Patient has headache and neck pain. EXAM: Head CT without IV contrast with sagittal and coronal reformations. Axial CT scan of the cervical spine with sagittal and coronal reformations. Auto Exposure Controls were utilized during the CT exam to meet ALARA standards for radiation dose reduction. COMPARISON: CT scan of the head without contrast dated 04/30/2019. CT scan of the cervical spine without contrast dated 02/07/2022. FINDINGS: Head CT: There is no evidence of acute cerebral infarct, intracranial hemorrhage, or gross mass effect. The brain parenchymal volume appears appropriate for patient's age. There is normal buckley-white matter distinction. There is no significant midline shift or herniation. There is no evidence of hydrocephalus. The basal cisterns are unremarkable. The skull, extracranial soft tissue, and orbits are unremarkable. There is minimal mucosal thickening involving the ethmoid sinus and right maxillary sinus. Temporal bones show no significant abnormality. Cervical spine: There is no acute cervical spine fracture or dislocation. There are small spurs involving the cervical spine. There is no significant central spinal canal or neural foramen narrowing. There is no significant neck soft tissue abnormality. Visualized upper lung friedman are clear. IMPRESSION: 1: There is no acute intracranial process. There is no skull fracture. 2: There is no acute cervical spine fracture or dislocation. Dictated by: Dictated on workstation # [id number]
--- NOTE | 2022-09-01 11:33 | Diagnostic Imaging Report ---
CLINICAL INDICATION: Patient fell at home two days ago hitting her head and hurting her back. EXAM: X-ray of the left shoulder, three views. COMPARISONS: X-ray of the left shoulder dated 08/31/2014. FINDINGS: There is no acute cervical spine fracture or dislocation. There is minimal spurring of the inferior aspect of the left glenoid. The left AC joint is unremarkable. 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 Dictated by: Dictated on workstation # [id number]
--- NOTE | 2022-09-01 11:38 | Diagnostic Imaging Report ---
INDICATION: Fall, head and back pain. FINDINGS: Frontal and lateral thoracic radiographs showed normal vertebral statures, aligned anatomically. No fracture or acute endplate irregularity. IMPRESSION: Unremarkable frontal and lateral thoracic spinal radiographs. Dictated by: Dictated on workstation # [id number]
[2022-09-01 11:50] VITALS: BP 123/96
== END 2022-09-01 11:50 | disposition home or self-care (01) ==
LOC: EDUNIT# 10:33 → ER 10:36
DX: S06.0X0A Concussion without loss of consciousness, initial encounter (principal); Z28.310 Unvaccinated for COVID-19; W01.0XXA Fall on same level from slipping, tripping and stumbling without subsequent striking against object, initial encounter; Y92.002 Bathroom of unspecified non-institutional (private) residence as the place of occurrence of the external cause
CPT/HCPCS: 70450; 72072; 72125; 73030